=== PATIENT | female | born 1955 | race Caucasian/White ===

== ENCOUNTER 2024-11-19 06:47 | Outpatient (CLI) | payer MEDICARE, SELFPAY ==
--- NOTE | ~2024-11-19 | US_ITS ---
Limited Abdominal Sonogram: Real-time sonographic imaging of the right upper quadrant was performed. Clinical History: Atypical chest pain Findings: The liver appears echogenic, with no evidence of mass lesion or bile duct dilatation. Main portal vein demonstrates normal direction of flow. The gallbladder is well distended, and appears no rmal with no evidence of gallstone or wall thickening. The common bile duct measures 4 mm. The visua lized pancreas, aorta, and IVC are unremarkable. Impression: Diffuse fatty infiltration of the liver. Reviewed, dictated and finalized at location M. O STATION ENGINEER Impression: Diffuse fatty infiltration of the liver.
--- OUTSIDE RECORDS SUMMARY | 2024-11-19 06:55 | XMS_ITS | Data Portability ---
Author Organization [place] [facility], Main Office Address [address] [place] [address] Assessment No assessment recorded. Plan of Treatment Reminders Order Date Submit Date Provider Last Modified By Organization Details Last Modified Time Details Appointments None recorded. Lab lipid panel, serum 025 025 [facility], [address] [place], [address], 5 04:05:22 CMP, serum or plasma 025 025 [facility], [address] [place], [address], 5 04:05:22 TSH, serum or plasma 025 025 [facility], [address] [place], [address], 5 04:05:22 HbA1c (hemoglob in A1c), blood 025 025 [facility], [address] [place], [address], 5 04:05:23 microalbu min, urine 025 025 [facility], [address] [place], [address], 5 04:05:23 vitamin B12, serum 025 025 [facility], [address] [place], [address], 5 04:05:23 magnesium , serum or plasma 025 025 [facility], [address] [place] [address], [address], 5 04:05:23 CBC w/ auto diff 025 025 [facility], [address] [place] [address], [address], 5 04:05:22 vitamin D, 25-hydrox y, total, serum [id number] [facility], [address] [place] [address], [address], 4 17:18:33 HbA1c (hemoglob in A1c), blood [id number] [facility], [address] [place] [address], [address], 4 17:18:33 microalbu min, urine 024 [facility], [address] [place] [address], [address], 4 14:44:47 CBC w/ auto diff 024 024 [facility], [address] [place] [address], [address], 4 12:45:36 CMP, serum or plasma 024 024 [facility], [address] [place] [address], [address], 4 13:18:13 lipid panel, serum 024 024 [facility], [address] [place] [address], [address], 4 13:18:18 TSH, serum or plasma [facility], [address] [place], [address], 4 13:48:51 T4, free, serum [facility], [address] [place], [address], 4 14:28:35 HbA1c (hemoglob in A1c), blood [address] [facility], [address] [place] [address], [address], 4 12:57:57 microalbu min/creat inine, mass ratio, urine [id number] [facility], [address] [place] [address], [address], 4 12:57:57 CBC w/ auto diff 024 [facility], [address] [place] [address], [address], 4 14:22:58 CMP, serum or plasma 024 [facility], [address] [place] [address], [address], 4 14:45:59 lipid panel, serum 024 [facility], [address] [place] [address], [address], 4 14:46:03 TSH, serum or plasma 024 [facility], [address] [place] [address], [address], 4 14:50:21 T4, free, serum 024 024 [facility], [address] [place], [address], 4 14:39:26 HbA1c (hemoglob in A1c), blood [id number] [facility], [address] [place], [address], 3 12:10:32 microalbu min/creat inine, mass ratio, urine [id number] [facility], [address] [place], [address], 3 12:10:33 lipid panel, serum 023 023 [facility], [address] [place], [address], 3 13:39:08 CMP, serum or plasma 023 023 [facility], [address] [place], [address], 3 13:39:11 TSH, serum or plasma 023 023 [facility], [address] [place], [address], 3 14:06:22 T4, free, serum 023 023 [facility], [address] [place], [address], 3 13:52:13 microalbu min/creat inine, mass ratio, urine [id number] [facility] [address] [facility], [address] [place] [address], [address], 3 15:31:54 HbA1c (hemoglob in A1c), blood 023 023 [email or web address] [facility], [address] [place], [address], 3 15:31:54 Referral None recorded. Procedures None recorded. Surgeries None recorded. Imaging None recorded. Medication Orders None recorded. Patient TargetsNo targets recorded. Patient Instructions Encounter Date Encounter Id Patient Instructions Last Modified By Organization Details Last Modified Time 04/18/2023 [id number] Follow-up hypertension -hyperlipidemia - type 2 diabetes -obesity class two. Clinically stable. Overall is doing reasonably well. Last hemoglobin A1c was still quite elevated at 8.4. Will check blood work in the form of CBC, CMP, lipid, Thyroid, hemoglobin A1c and microalbumin. Continue on current Rx follow-up in four months [email or web address] Not available 04/18/2023 11:34:26 07/18/2023 [id number] Essential hypertension-hyperl ipidemia- type 2 diabetes- obesity class 2 . Will check a hemoglobin A1c and microalbumin. Menu on current Rx. Follow-up in four months. Portions of the record may have been created with voice recognition software. Occasional wrong-word or dckhw-x-jxgi substitutions may have occurred due to the inherent limitations of voice recognition software. Read the chart carefully and recognize, using context, where substitutions have occurred. Next Appt: 4 Months Approximate Date: 11/15/2023 [email or web address] Not available 07/18/2023 11:40:40 11/14/2023 [id number] Essential hypertension -hyperlipidemia - type 2 diabetes -obesity class two all clinically stable. Overall doing well otherwise. Will check blood work consisting of CBC, CMP, lipid, thyroid, hemoglobin A1c and microalbumin. Continue on current Rx and follow-up in four months Portions of the record may have been created with voice recognition software. Occasional wrong-word or rjaee-e-kqdh substitutions may have occurred due to the inherent limitations of voice recognition software. Read the chart carefully and recognize, using context, where substitutions have occurred. [email or web address] Not available 11/14/2023 12:11:58 05/13/2024 [id number] dementia rating scale-2* [email or web address] Not available 05/13/2024 15:40:26 alcohol misuse* Not available 05/13/2024 15:40:26 depression screening* [email or web address] Not available 05/13/2024 15:40:26 multi-dimensiona l health assessment questionnaire* [email or web address] Not available 05/13/2024 15:40:26 Personalized Hea lt Plan and Screening Recommendations Advance Directives - Do you have one? No Advance Directives - Do we have your advance directive on file in your health record? Primary Prevention/Interven tion (prevents or decreases the chance of common diseases from occurring) Smoking Risk: Non Smoker Alcohol Misuse Screening: Negative Weight: Appropriate Overwei ght continue your current weight loss efforts try to lose 5% of your body weight try to lose 10% of your body weight Physical activity: Need more exercise/physical activity Nutrition: Good Average Fall Risk (screened today): Low Intermediate Refer to attached handout Preventing Falls: After your Visit Recommend regular use of cane or walker Vaccines Pneumococcal: Influenza: Your next one in the fall of this year Chronic Disease Risks Stroke: Low Risk Intermediate Risk I have no recommendations Act nasim diagnosis, Continue current treatment plan Heart Attack: Low risk Intermediate Risk I have no recommendations Act nasim diagnosis, Continue current treatment plan Clogging of the Arteries: Low risk Intermediate Risk I have no recommendations Act nasim diagnosis, Continue current treatment plan Diabetes: Low Risk Intermediate Risk Active diagnosis, Continue current treatment plan Secondary Prevention/Interven tion (detects treatable diseases before they may cause symptoms, disability, or ) Breast Cancer Screening with mammogram: Your next mammogram: Ordered Recommended today Cervical/Uterine/Ov samir Cancer Screening: No screening necessary Osteoporosis Screening: Your next DEXA in: Ordered Recomme nded today Date Screening Last Performed: Colon Cancer Screening: Colonoscopy In: Ordered Recomme nded Date Screening Last Performed: ____ Eye Disease Screening: Dementia Risk: Low I have no recommendations Depression Screening: Negative [email or web address] Not available 05/13/2024 15:28:17 Medicare wellnes s evaluation risk assessment stable. Follow-up for hypertension, hyperlipidemia, type 2 diabetes and obesity class two. Clinically doing well. Blood sugars have been well over 200 and even 300 at times. Will check blood work but may need to consider adding some semaglutide or mounjaro. Will check a CBC, CMP, lipid, thyroid, hemoglobin A1c, microalbumin and vitamin-D level. Continue on current Rx follow-up in six months Additional Orders and/or Directives: 1. Bone density scan 2. Cologuard Next Appointment: 6 Months Approximate Date: 11/09/2024 Portions of the record may have been created with voice recognition software. Occasional wrong-word or itkuj-y-kuep substitutions may have occurred due to the inherent limitations of voice recognition software. Read the chart carefully and recognize, using context, where substitutions have occurred. [email or web address] Not available 05/13/2024 15:39:36 11/11/2024 [id number] Atypical chest pain, hypertension, hyperlipidemia, type 2 diabetes, GERD and obesity class two. Continue on current Rx check blood work consisting of CBC, CMP, lipid, thyroid, hemoglobin A1c, microalbumin. Will set up with Cardiology also set up for ultrasound of the gallbladder for further evaluation of the biliary tree. Pending those results may need further evaluation Additional Orders - Directives - Recommendations 1. Ultrasound of the gallbladder 2. Cardiology consult for atypical chest pain with multiple risk factor Follow Up: 4 Months Approximate Date: 03/11/2025 Portions of record are template driven. When necessary additional context will be provided. Additionally some portions have been created with voice recognition software. Occasional wrong-word or avsbi-i-fesf substitutions may have occurred due to the inherent limitations of voice recognition software. Read the chart carefully and recognize, using context, where substitutions may have occurred. Created: Rodolfo Chapman M.D. 11.11.2024 02:45 PM [email or web address] Not available 11/11/2024 15:46:10 Reason for Referral None Reported. Results Created Date Observation Date Name Description Value Unit Range Abnormal Flag Note LastModifiedBy Organization Detail LastModifiedTime 04/18/2004/18/2023 MICRO ALBUM N RNDM W/CRE AT RATIO ur creat 209.82 mg/dL REFER ENCE RANGE NOT ESTAB LISHE D FOR RANDO M URINE CREAT ININE Not Available [facility] (Lab) [address] [place], [address], 04/18/2023 13:11:52 04/18/2004/1804/18/2023 MICRO ALBUM N RNDM W/CRE AT RATIO microalbumin , urine 42.5 mg/L 0.0-16 .6 high Not Available [facility] (Lab) [address] [place], [address], 04/18/2023 13:11:52 04/18/20 23 04/18/2023 MICRO ALBUM N RNDM W/CRE AT RATIO microalbumin /creatinine ratio 20 mcg/m g 0-29 THE AMERI CAN DIABE TJ ASSOC IATIO N DEFIN ES ABNOR MALIT IES IN ALBUM IN EXCRE TION FOLLO WS: CATEG ORY RESUL T (MCG/ MG CREAT ININE ) EDGARD L <30 MICRO ALBUM INURI A 30-29 9 CLINI JESSIE ALBUM INURI A > OR = 300 THE ADA RECOM MENDS THAT 2 OF 2 SPECI MENS COLLE CTED WITHI N A 3- TO 6-MON TH PERIO D BE ABNOR MAL BEFOR E CONSI DILMA G A PATIE NT TO HAVE CROSS ED ONE OF THESE DIAGN OSTIC THRES HOLDS . REFER ENCE: DIABE TJ CARE, VOL. 26: S94-S 96, 2002 Not Available [facility] (Lab) [address] [place], [address], 04/18/2023 13:11:52 04/18/20 23 04/18/2023 LIPID PANEL cholesterol 152 mg/dL 140-19 9 NIH LOLITA NSUS RECOM MENDA TION FOR JUDY STERO L: ADULT CHILD LOW RISK: <200 <170 BORDE RLINE : <200- 239 ----- HIGH RISK: >240 >200 Not Available [facility] (Lab) [address] [place], [address], 04/18/2023 13:39:08 04/18/2004/18/2023 LIPID PANEL triglyceride s 208 mg/dL 0-150 high NIH LOLITA NSUS REPOR T RECOM MENDA TION FOR TRIGL YCERI LEIA: ADULT CHILD LOW RISK: <150 ----- BODER LINE: 150-1 99 ----- HIGH RISK: >200 ----- Not Available [facility] (Lab) [address] [place], [address], 04/18/2023 13:39:08 04/18/2004/18/2023 LIPID PANEL HDL cholesterol 62 mg/dL 40- Not Available [facility] (Lab) [address] [place], [address], 04/18/2023 13:39:08 04/18/2004/18/2023 LIPID PANEL LDL cholesterol, calculated 48 mg/dL 0-130 NIH LOLITA NSUS REPOR T RECOM MENDA TIONS FOR LDL: ADULT CHILD LOW RISK <130 <110 (OPTI MAL LDL) <100 ----- RUTHDE RLINE : 130-1 59 ----- HIGH RISK: >160 >130 A TRIGL YCERI DE RESUL T >400 INVAL IDATE S THE CALCU LATIO N FOR LDL FRACT IONAT ION - THE LDL RESUL T WILL NOT BE REPOR THOMAS. Not Available [facility] (Lab) [address] [place], [address], 04/18/2023 13:39:08 04/18/2004/18/2023 COMPR EHENS NASIM METAB OLIC PANEL sodium 136 mmol/ L 137-14 5 low Not Available [facility] (Lab) [address] [place], [address], 04/18/2023 13:39:11 04/18/2004/18/2023 COMPR EHENS NASIM METAB OLIC PANEL potassium 4.9 mmol/ L 3.5-5. 1 Not Available [facility] (Lab) [address] [place], [address], 04/18/2023 13:39:11 04/18/20 23 04/18/2023 COMPR EHENS NASIM METAB OLIC PANEL chloride 101 mmol/ L 98-107 Not Available [facility] (Lab) [address] [place], [address], 04/18/2023 13:39:11 04/18/20 23 04/18/2023 COMPR EHENS NASIM METAB OLIC PANEL carbon dioxide 26 mmol/ L 22-30 Not Available [facility] (Lab) [address] [place], [address], 04/18/2023 13:39:11 04/18/20 23 04/18/2023 COMPR EHENS NASIM METAB OLIC PANEL anion gap 13.9 mmol/ L 14-22 low Not Available [facility] (Lab) [address] [place], [address], 04/18/2023 13:39:11 04/18/20 23 04/18/2023 COMPR EHENS NASIM METAB OLIC PANEL glucose 335 mg/dL 70-99 high Not Available [facility] (Lab) [address] [place], [address], 04/18/2023 13:39:11 04/18/20 23 04/18/2023 COMPR EHENS NASIM METAB OLIC PANEL BUN 14 mg/dL 8-19 Not Available [facility] (Lab) [address] [place], [address], 04/18/2023 13:39:11 04/18/20 23 04/18/2023 COMPR EHENS NASIM METAB OLIC PANEL creatinine 0.62 mg/dL 0.66-1 .25 low Not Available [facility] (Lab) [address] [place], [address], 04/18/2023 13:39:11 04/18/20 23 04/18/2023 COMPR EHENS NASIM METAB OLIC PANEL GFR >60 Refer ence Range : Eros ge GFR Healt hy Adult : >60 mL/mi n/1.7 3 m2 Chron ic Kidne y Disea se: 15-60 mL/mi n/1.7 3 m2 Kidne y Failu re: <15/m L/min /1.73 m2 www.n iddk. nih.g ov The MDRD study equat ion has not been valid ated in child jen <18 years of age; pregn ant women ; the elder ly >85 years of age; or in some racia l or ethni c subgr oups, such as Hispa nics. Outsi de the valid ated juan diego eters , estim ated GFR is less accur ate, requi ring clini jessie judgm ent on a case- by-ca se basis . Clini jessie inter preta tion for other races and ages must be made by the clini evelyn. The MDRD study equat ion has not been valid ated for the evalu ation of serum creat inine relat ed to nutri mike l statu s or medic ation usage . For perso ns <18 years of age, a pedia tric GFR calcu lator is avail able on the [facility] websi te: https ://odette blas.sima palacios.o rg/pr ofess ional s/kdo qi/gf r_cal culat or Not Available [facility] (Lab) [address] [place], [address], 04/18/2023 13:39:11 04/18/20 23 04/18/2023 COMPR EHENS NASIM METAB OLIC PANEL alkaline phosphatase 127 U/L 38-126 high Not Available [facility] (Lab) [address] [place], [address], 04/18/2023 13:39:11 04/18/2004/18/2023 COMPR EHENS NASIM METAB OLIC PANEL alanine aminotransfe rase 24 U/L 0-35 Not Available [facility] (Lab) [address] [place], [address], 04/18/2023 13:39:11 04/18/20 23 04/18/2023 COMPR EHENS NASIM METAB OLIC PANEL aspartate aminotransfe rase 24 U/L 15-37 Not Available [facility] (Lab) [address] [place], [address], 04/18/2023 13:39:11 04/18/2004/18/2023 COMPR EHENS NASIM METAB OLIC PANEL bilirubin, total 0.80 mg/dL 0.20-1 .30 Not Available [facility] (Lab) [address] [place], [address], 04/18/2023 13:39:11 04/18/20 23 04/18/2023 COMPR EHENS NASIM METAB OLIC PANEL calcium 9.4 mg/dL 8.4-10 .2 Not Available [facility] (Lab) [address] [place], [address], 04/18/2023 13:39:11 04/18/2004/18/2023 COMPR EHENS NASIM METAB OLIC PANEL total protein 8.0 g/dL 6.3-8. 2 Not Available [facility] (Lab) [address] [place], [address], 04/18/2023 13:39:11 04/18/2004/18/2023 COMPR EHENS NASIM METAB OLIC PANEL albumin 4.6 g/dL 3.0-4. 4 high Not Available [facility] (Lab) [address] [place], [address], 04/18/2023 13:39:11 04/18/2004/18/2023 COMPR EHENS NASIM METAB OLIC PANEL globulin 3.4 g/dL 2.6-4. 2 Not Available [facility] (Lab) [address] [place], [address], 04/18/2023 13:39:11 04/18/2004/18/2023 COMPR EHENS NASIM METAB OLIC PANEL A/G ratio 1.4 ratio 1.0-2. 0 Not Available [facility] (Lab) [address] [place], [address], 04/18/2023 13:39:11 04/18/2004/18/2023 T4 FREE free T4 1.20 NG/dL 0.78-2 .19 Not Available [facility] (Lab) [address] [place], [address], 04/18/2023 13:52:13 04/18/20 23 04/18/2023 TSH thyroid-stim ulating hormone 2.090 uIU/m L 0.465- 4.680 Not Available [facility] (Lab) [address] [place], [address], 04/18/2023 14:06:22 04/18/20 23 04/18/2023 HEMOG LOBIN A1C HA1C 8.7 % 4.0-6. 0 high Diabe tj Scree nathalia Crite ez: <5.7% Consi stent with absen ce of diabe tj 5.7-6 .4% Consi stent with incre ased risk for diabe tj (pred iabet es) >OR=6 .5% Consi stent with diabe tj REFER ENCE: Diabe tj Care 2016, 39(Hutson ppl.1 ):s13 -s22 Not Available [facility] (Lab) [address] [place], [address], 04/18/2023 21:57:52 06/26/20 23 06/27/2023 FRUCT OSAMI NE fructosamine 320 umol/ L 0-285 high Publi shed refer ence inter tessy for appar ently healt hy subje cts betwe en age 20 and 60 is 205 - 285 umol/ L and in a poorl y contr olled diabe tic popul ation is 228 - 563 umol/ L with a mean of 396 umol/ L. Perfo rmed at: [facility] [address], [place] [address] Lab Direc tor: Reynaldo gutierrez PhD, Phone : [phone] Not Available [facility] (Lab) [address] [place], [address], 06/27/2023 11:13:55 07/18/2007/18/2023 MICRO ALBUM N RNDM W/CRE AT RATIO ur creat 34.19 mg/dL REFER ENCE RANGE NOT ESTAB LISHE D FOR RANDO M URINE CREAT ININE Not Available [facility] (Lab) [address] [place], [address], 07/18/2023 14:37:43 07/18/20 23 07/18/2023 MICRO ALBUM N RNDM W/CRE AT RATIO microalbumin , urine <6.0 mg/L 0.0-16 .6 Not Available [facility] (Lab) [address] [place], [address], 07/18/2023 14:37:43 07/18/2007/18/2023 HEMOG LOBIN A1C HA1C 8.3 % 4.0-6. 0 high Diabe tj Scree nathalia Crite ez: <5.7% Consi stent with absen ce of diabe tj 5.7-6 .4% Consi stent with incre ased risk for diabe tj (pred iabet es) >OR=6 .5% Consi stent with diabe tj REFER ENCE: Diabe tj Care 2016, 39(Hutson ppl.1 ):s13 -s22 Not Available [facility] (Lab) [address] [place], [address], 07/18/2023 23:47:01 11/14/19 24 11/14/2023 MICRO ALBUM N RNDM W/CRE AT RATIO ur creat 162.10 mg/dL REFER ENCE RANGE NOT ESTAB LISHE D FOR RANDO M URINE CREAT ININE Not Available [facility] (Lab) [address] [place], [address], 11/14/2023 15:29:50 11/14/19 24 11/14/2023 MICRO ALBUM N RNDM W/CRE AT RATIO microalbumin , urine 32.0 mg/L 0.0-16 .6 high Not Available [facility] (Lab) [address] [place], [address], 11/14/2023 15:29:50 11/14/19 24 11/14/2023 MICRO ALBUM N RNDM W/CRE AT RATIO microalbumin /creatinine ratio 20 mcg/m g 0-29 THE AMERI CAN DIABE TJ ASSOC IATIO N DEFIN ES ABNOR MALIT IES IN ALBUM IN EXCRE TION FOLLO WS: CATEG ORY RESUL T (MCG/ MG CREAT ININE ) EDGARD L <30 MICRO ALBUM INURI A 30-29 9 CLINI JESSIE ALBUM INURI A > OR = 300 THE ADA RECOM MENDS THAT 2 OF 2 SPECI MENS COLLE CTED WITHI N A 3- TO 6-MON TH PERIO D BE ABNOR MAL BEFOR E CONSI DILMA G A PATIE NT TO HAVE CROSS ED ONE OF THESE DIAGN OSTIC THRES HOLDS . REFER ENCE: DIABE TJ CARE, VOL. 26: S94-S 96, 2002 Not Available [facility] (Lab) [address] [place], [address], 11/14/2023 15:29:50 11/14/19 24 11/14/2023 CBC/C OMPLE TE BLD COUNT W/DIF F white blood cells 7.8 x10'3 /uL 4.2-10 .8 Not Available [facility] (Lab) [address] [place], [address], 11/14/2023 14:22:57 11/14/19 24 11/14/2023 CBC/C OMPLE TE BLD COUNT W/DIF F red blood cells 4.93 x10'6 /uL 3.80-5 .20 Not Available [facility] (Lab) [address] [place], [address], 11/14/2023 14:22:57 11/14/19 24 11/14/2023 CBC/C OMPLE TE BLD COUNT W/DIF F hemoglobin 14.3 g/dL 12.0-1 5.6 Not Available [facility] (Lab) [address] [place], [address], 11/14/2023 14:22:57 11/14/19 24 11/14/2023 CBC/C OMPLE TE BLD COUNT W/DIF F hematocrit 43.0 % 35.7-4 5.7 Not Available [facility] (Lab) [address] [place], [address], 11/14/2023 14:22:57 11/14/19 24 11/14/2023 CBC/C OMPLE TE BLD COUNT W/DIF F mean red cell volume 87.2 fL 82.0-9 9.0 Not Available [facility] (Lab) [address] [place], [address], 11/14/2023 14:22:57 11/14/19 24 11/14/2023 CBC/C OMPLE TE BLD COUNT W/DIF F mean red cell hemoglobin 29.0 pg 27.0-3 3.0 Not Available [facility] (Lab) [address] [place], [address], 11/14/2023 14:22:57 11/14/19 24 11/14/2023 CBC/C OMPLE TE BLD COUNT W/DIF F mean RBC HGB concentratio n 33.3 g/dL 31.0-3 6.0 Not Available [facility] (Lab) [address] [place], [address], 11/14/2023 14:22:57 11/14/19 24 11/14/2023 CBC/C OMPLE TE BLD COUNT W/DIF F red cell distribution width 12.7 % 11.8-1 5.5 Not Available [facility] (Lab) [address] [place], [address], 11/14/2023 14:22:57 11/14/19 24 11/14/2023 CBC/C OMPLE TE BLD COUNT W/DIF F platelets 320 x10'3 /uL 150-40 0 Not Available [facility] (Lab) [address] [place], [address], 11/14/2023 14:22:57 11/14/19 24 11/14/2023 CBC/C OMPLE TE BLD COUNT W/DIF F mean platelet volume 10.9 fL 9.0-12 .4 Not Available [facility] (Lab) [address] [place], [address], 11/14/2023 14:22:57 11/14/19 24 11/14/2023 CBC/C OMPLE TE BLD COUNT W/DIF F neutrophils 47.7 % 39.0-7 2.0 Not Available [facility] (Lab) [address] [place], [address], 11/14/2023 14:22:57 11/14/19 24 11/14/2023 CBC/C OMPLE TE BLD COUNT W/DIF F lymphocytes 40.1 % 16.0-4 7.0 Not Available [facility] (Lab) [address] [place], [address], 11/14/2023 14:22:57 11/14/19 24 11/14/2023 CBC/C OMPLE TE BLD COUNT W/DIF F monocytes 5.1 % 5.0-12 .0 Not Available [facility] (Lab) [address] [place], [address], 11/14/2023 14:22:57 11/14/19 24 11/14/2023 CBC/C OMPLE TE BLD COUNT W/DIF F eosinophils 5.6 % 1.0-7. 0 Not Available [facility] (Lab) [address] [place], [address], 11/14/2023 14:22:57 11/14/19 24 11/14/2023 CBC/C OMPLE TE BLD COUNT W/DIF F basophils 1.0 % 0.0-2. 0 Not Available [facility] (Lab) [address] [place], [address], 11/14/2023 14:22:57 11/14/19 24 11/14/2023 CBC/C OMPLE TE BLD COUNT W/DIF F immature granulocytes 0.5 % 0.00-0 .50 Not Available [facility] (Lab) [address] [place], [address], 11/14/2023 14:22:57 11/14/19 24 11/14/2023 CBC/C OMPLE TE BLD COUNT W/DIF F neutrophils, absolute count 3.71 x10'3 /uL 1.5-8. 0 Not Available [facility] (Lab) [address] [place], [address], 11/14/2023 14:22:57 11/14/19 24 11/14/2023 CBC/C OMPLE TE BLD COUNT W/DIF F lymphocytes, absolute count 3.13 x10'3 /uL 1.07-3 .43 Not Available [facility] (Lab) [address] [place], [address], 11/14/2023 14:22:57 11/14/19 24 11/14/2023 CBC/C OMPLE TE BLD COUNT W/DIF F monocytes, absolute count 0.40 x10'3 /uL 0.29-0 .99 Not Available [facility] (Lab) [address] [place], [address], 11/14/2023 14:22:57 11/14/19 24 11/14/2023 CBC/C OMPLE TE BLD COUNT W/DIF F eosinophils, absolute count 0.44 x10'3 /uL 0.02-0 .53 Not Available [facility] (Lab) [address] [place], [address], 11/14/2023 14:22:57 11/14/19 24 11/14/2023 CBC/C OMPLE TE BLD COUNT W/DIF F basophils, absolute count 0.08 x10'3 /uL 0.01-0 .08 Not Available [facility] (Lab) [address] [place], [address], 11/14/2023 14:22:57 11/14/19 24 11/14/2023 CBC/C OMPLE TE BLD COUNT W/DIF F immature granulocytes ,absolute 0.04 x10'3 /uL 0.00-0 .05 Not Available [facility] (Lab) [address] [place], [address], 11/14/2023 14:22:57 11/14/19 24 11/14/2023 CBC/C OMPLE TE BLD COUNT W/DIF F nucleated red blood cells 0.0 % -0 Not Available [facility] (Lab) [address] [place], [address], 11/14/2023 14:22:57 11/14/19 24 11/14/2023 CBC/C OMPLE TE BLD COUNT W/DIF F NRBC# 0.00 x10'3 /uL Not Available [facility] (Lab) [address] [place], [address], 11/14/2023 14:22:57 11/14/19 24 11/14/2023 T4 FREE free T4 1.10 NG/dL 0.78-2 .19 Not Available [facility] (Lab) [address] [place], [address], 11/14/2023 14:39:26 11/14/19 24 11/14/2023 COMPR EHENS NAISM METAB OLIC PANEL sodium 138 mmol/ L 137-14 5 Not Available [facility] (Lab) [address] [place], [address], 11/14/2023 14:45:59 11/14/19 24 11/14/2023 COMPR EHENS NASIM METAB OLIC PANEL potassium 4.6 mmol/ L 3.5-5. 1 Not Available [facility] (Lab) [address] [place], [address], 11/14/2023 14:45:59 11/14/19 24 11/14/2023 COMPR EHENS NASIM METAB OLIC PANEL chloride 102 mmol/ L 98-107 Not Available [facility] (Lab) [address] [place], [address], 11/14/2023 14:45:59 11/14/19 24 11/14/2023 COMPR EHENS NASIM METAB OLIC PANEL carbon dioxide 32 mmol/ L 22-30 high Not Available [facility] (Lab) [address] [place], [address], 11/14/2023 14:45:59 11/14/19 24 11/14/2023 COMPR EHENS NASIM METAB OLIC PANEL anion gap 8.6 mmol/ L 14-22 low Not Available [facility] (Lab) [address] [place], [address], 11/14/2023 14:45:59 11/14/19 24 11/14/2023 COMPR EHENS NASIM METAB OLIC PANEL glucose 258 mg/dL 70-99 high Not Available [facility] (Lab) [address] [place], [address], 11/14/2023 14:45:59 11/14/19 24 11/14/2023 COMPR EHENS NASIM METAB OLIC PANEL BUN 17 mg/dL 8-19 Not Available [facility] (Lab) [address] [place], [address], 11/14/2023 14:45:59 11/14/19 24 11/14/2023 COMPR EHENS NASIM METAB OLIC PANEL creatinine 0.77 mg/dL 0.66-1 .25 Not Available [facility] (Lab) [address] [place], [address], 11/14/2023 14:45:59 11/14/19 24 11/14/2023 COMPR EHENS NASIM METAB OLIC PANEL GFR >60 Refer ence Range : Eros ge GFR Healt hy Adult : >60 mL/mi n/1.7 3 m2 Chron ic Kidne y Disea se: 15-60 mL/mi n/1.7 3 m2 Kidne y Failu re: <15/m L/min /1.73 m2 www.n iddk. nih.g ov The MDRD study equat ion has not been valid ated in child jen <18 years of age; pregn ant women ; the elder ly >85 years of age; or in some racia l or ethni c subgr oups, such as Hispa nics. Outsi de the valid ated juan diego eters , estim ated GFR is less accur ate, requi ring clini jessie judgm ent on a case- by-ca se basis . Clini jessie inter preta tion for other races and ages must be made by the clini evelyn. The MDRD study equat ion has not been valid ated for the evalu ation of serum creat inine relat ed to nutri mike l statu s or medic ation usage . For perso ns <18 years of age, a pedia tric GFR calcu lator is avail able on the [facility] websi te: https ://odette w.sima palacios.o patricio/pr ofess ional s/kdo qi/gf r_cal culat or Not Available [facility] (Lab) [address] [place], [address], 11/14/2023 14:45:59 11/14/19 24 11/14/2023 COMPR EHENS NASIM METAB OLIC PANEL alkaline phosphatase 112 U/L 38-126 Not Available [facility] (Lab) [address] [place], [address], 11/14/2023 14:45:59 11/14/19 24 11/14/2023 COMPR EHENS NASIM METAB OLIC PANEL alanine aminotransfe rase 28 U/L 0-35 Not Available [facility] (Lab) [address] [place], [address], 11/14/2023 14:45:59 11/14/19 24 11/14/2023 COMPR EHENS NASIM METAB OLIC PANEL aspartate aminotransfe rase 25 U/L 15-37 Not Available [facility] (Lab) [address] [place], [address], 11/14/2023 14:45:59 11/14/19 24 11/14/2023 COMPR EHENS NASIM METAB OLIC PANEL bilirubin, total 0.70 mg/dL 0.20-1 .30 Not Available [facility] (Lab) [address] [place], [address], 11/14/2023 14:45:59 11/14/19 24 11/14/2023 COMPR EHENS NASIM METAB OLIC PANEL calcium 9.9 mg/dL 8.4-10 .2 Not Available [facility] (Lab) [address] [place], [address], 11/14/2023 14:45:59 11/14/19 24 11/14/2023 COMPR EHENS NASIM METAB OLIC PANEL total protein 7.4 g/dL 6.3-8. 2 Not Available [facility] (Lab) [address] [place], [address], 11/14/2023 14:45:59 11/14/19 24 11/14/2023 COMPR EHENS NASIM METAB OLIC PANEL albumin 4.3 g/dL 3.0-4. 4 Not Available [facility] (Lab) [address] [place], [address], 11/14/2023 14:45:59 11/14/19 24 11/14/2023 COMPR EHENS NASIM METAB OLIC PANEL globulin 3.1 g/dL 2.6-4. 2 Not Available [facility] (Lab) [address] [place], [address], 11/14/2023 14:45:59 11/14/19 24 11/14/2023 COMPR EHENS NASIM METAB OLIC PANEL A/G ratio 1.4 ratio 1.0-2. 0 Not Available [facility] (Lab) [address] [place], [address], 11/14/2023 14:45:59 11/14/19 24 11/14/2023 LIPID PANEL cholesterol 138 mg/dL 140-19 9 low NIH LOLITA NSUS RECOM MENDA TION FOR JUDY STERO L: ADULT CHILD LOW RISK: <200 <170 BORDE RLINE : <200- 239 ----- HIGH RISK: >240 >200 Not Available [facility] (Lab) [address] [place], [address], 11/14/2023 14:46:03 11/14/19 24 11/14/2023 LIPID PANEL triglyceride s 178 mg/dL 0-150 high NIH LOLITA NSUS REPOR T RECOM MENDA TION FOR TRIGL YCERI LEIA: ADULT CHILD LOW RISK: <150 ----- BODER LINE: 150-1 99 ----- HIGH RISK: >200 ----- Not Available [facility] (Lab) [address] [place], [address], 11/14/2023 14:46:03 11/14/19 24 11/14/2023 LIPID PANEL HDL cholesterol 66 mg/dL 40- Not Available [facility] (Lab) [address] [place], [address], 11/14/2023 14:46:03 11/14/19 24 11/14/2023 LIPID PANEL LDL cholesterol, calculated 36 mg/dL 0-130 NIH LOLITA NSUS REPOR T RECOM MENDA TIONS FOR LDL: ADULT CHILD LOW RISK <130 <110 (OPTI MAL LDL) <100 ----- BORDE RLINE : 130-1 59 ----- HIGH RISK: >160 >130 A TRIGL YCERI DE RESUL T >400 INVAL IDATE S THE CALCU LATIO N FOR LDL FRACT IONAT ION - THE LDL RESUL T WILL NOT BE REPOR THOMAS. Not Available [facility] (Lab) [address] [place], [address], 11/14/2023 14:46:03 11/14/19 24 11/14/2023 TSH thyroid-stim ulating hormone 2.110 uIU/m L 0.465- 4.680 Not Available [facility] (Lab) [address] [place], [address], 11/14/2023 14:50:21 11/14/19 24 11/14/2023 HEMOG LOBIN A1C HA1C 8.5 % 4.0-6. 0 high Diabe tj Scree nathalia Crite ez: <5.7% Consi stent with absen ce of diabe tj 5.7-6 .4% Consi stent with incre ased risk for diabe tj (pred iabet es) >OR=6 .5% Consi stent with diabe tj REFER ENCE: Diabe tj Care 2016, 39(Hutson ppl.1 ):s13 -s22 Not Available [facility] (Lab) [address] [place], [address], 11/14/2023 15:15:34 05/15/20 24 05/15/2024 CBC/C OMPLE TE BLD COUNT W/DIF F white blood cells 8.4 x10'3 /uL 4.2-10 .8 Not Available [facility] (Lab) [address] [place], [address], 05/15/2024 12:45:36 05/15/20 24 05/15/2024 CBC/C OMPLE TE BLD COUNT W/DIF F red blood cells 4.56 x10'6 /uL 3.80-5 .20 Not Available [facility] (Lab) [address] [place], [address], 05/15/2024 12:45:36 05/15/20 24 05/15/2024 CBC/C OMPLE TE BLD COUNT W/DIF F hemoglobin 13.6 g/dL 12.0-1 5.6 Not Available [facility] (Lab) [address] [place], [address], 05/15/2024 12:45:36 05/15/20 24 05/15/2024 CBC/C OMPLE TE BLD COUNT W/DIF F hematocrit 40.3 % 35.7-4 5.7 Not Available [facility] (Lab) [address] [place], [address], 05/15/2024 12:45:36 05/15/20 24 05/15/2024 CBC/C OMPLE TE BLD COUNT W/DIF F mean red cell volume 88.4 fL 82.0-9 9.0 Not Available [facility] (Lab) [address] [place], [address], 05/15/2024 12:45:36 05/15/20 24 05/15/2024 CBC/C OMPLE TE BLD COUNT W/DIF F mean red cell hemoglobin 29.8 pg 27.0-3 3.0 Not Available [facility] (Lab) [address] [place], [address], 05/15/2024 12:45:36 05/15/20 24 05/15/2024 CBC/C OMPLE TE BLD COUNT W/DIF F mean RBC HGB concentratio n 33.7 g/dL 31.0-3 6.0 Not Available [facility] (Lab) [address] [place], [address], 05/15/2024 12:45:36 05/15/20 24 05/15/2024 CBC/C OMPLE TE BLD COUNT W/DIF F red cell distribution width 12.7 % 11.8-1 5.5 Not Available [facility] (Lab) [address] [place], [address], 05/15/2024 12:45:36 05/15/20 24 05/15/2024 CBC/C OMPLE TE BLD COUNT W/DIF F platelets 312 x10'3 /uL 150-40 0 Not Available [facility] (Lab) [address] [place], [address], 05/15/2024 12:45:36 05/15/20 24 05/15/2024 CBC/C OMPLE TE BLD COUNT W/DIF F mean platelet volume 10.8 fL 9.0-12 .4 Not Available [facility] (Lab) [address] [place], [address], 05/15/2024 12:45:36 05/15/20 24 05/15/2024 CBC/C OMPLE TE BLD COUNT W/DIF F neutrophils 59.6 % 39.0-7 2.0 Not Available [facility] (Lab) [address] [place], [address], 05/15/2024 12:45:36 05/15/20 24 05/15/2024 CBC/C OMPLE TE BLD COUNT W/DIF F lymphocytes 24.9 % 16.0-4 7.0 Not Available [facility] (Lab) [address] [place], [address], 05/15/2024 12:45:36 05/15/20 24 05/15/2024 CBC/C OMPLE TE BLD COUNT W/DIF F monocytes 5.6 % 5.0-12 .0 Not Available [facility] (Lab) [address] [place], [address], 05/15/2024 12:45:36 05/15/20 24 05/15/2024 CBC/C OMPLE TE BLD COUNT W/DIF F eosinophils 8.8 % 1.0-7. 0 high Not Available [facility] (Lab) [address] [place], [address], 05/15/2024 12:45:36 05/15/20 24 05/15/2024 CBC/C OMPLE TE BLD COUNT W/DIF F basophils 0.7 % 0.0-2. 0 Not Available [facility] (Lab) [address] [place], [address], 05/15/2024 12:45:36 05/15/20 24 05/15/2024 CBC/C OMPLE TE BLD COUNT W/DIF F immature granulocytes 0.4 % 0.00-0 .50 Not Available [facility] (Lab) [address] [place], [address], 05/15/2024 12:45:36 05/15/20 24 05/15/2024 CBC/C OMPLE TE BLD COUNT W/DIF F neutrophils, absolute count 4.99 x10'3 /uL 1.5-8. 0 Not Available [facility] (Lab) [address] [place], [address], 05/15/2024 12:45:36 05/15/20 24 05/15/2024 CBC/C OMPLE TE BLD COUNT W/DIF F lymphocytes, absolute count 2.09 x10'3 /uL 1.07-3 .43 Not Available [facility] (Lab) [address] [place], [address], 05/15/2024 12:45:36 05/15/20 24 05/15/2024 CBC/C OMPLE TE BLD COUNT W/DIF F monocytes, absolute count 0.47 x10'3 /uL 0.29-0 .99 Not Available [facility] (Lab) [address] [place], [address], 05/15/2024 12:45:36 05/15/20 24 05/15/2024 CBC/C OMPLE TE BLD COUNT W/DIF F eosinophils, absolute count 0.74 x10'3 /uL 0.02-0 .53 high Not Available [facility] (Lab) [address] [place], [address], 05/15/2024 12:45:36 05/15/20 24 05/15/2024 CBC/C OMPLE TE BLD COUNT W/DIF F basophils, absolute count 0.06 x10'3 /uL 0.01-0 .08 Not Available [facility] (Lab) [address] [place], [address], 05/15/2024 12:45:36 05/15/20 24 05/15/2024 CBC/C OMPLE TE BLD COUNT W/DIF F immature granulocytes ,absolute 0.03 x10'3 /uL 0.00-0 .05 Not Available [facility] (Lab) [address] [place], [address], 05/15/2024 12:45:36 05/15/20 24 05/15/2024 CBC/C OMPLE TE BLD COUNT W/DIF F nucleated red blood cells 0.0 % -0 Not Available [facility] (Lab) [address] [place], [address], 05/15/2024 12:45:36 05/15/20 24 05/15/2024 CBC/C OMPLE TE BLD COUNT W/DIF F NRBC# 0.00 x10'3 /uL Not Available [facility] (Lab) [address] [place], [address], 05/15/2024 12:45:36 05/15/20 24 05/15/2024 COMPR EHENS NASIM METAB OLIC PANEL sodium 138 mmol/ L 137-14 5 Not Available [facility] (Lab) [address] [place], [address], 05/15/2024 13:18:13 05/15/20 24 05/15/2024 COMPR EHENS NASIM METAB OLIC PANEL potassium 4.2 mmol/ L 3.5-5. 1 Not Available [facility] (Lab) [address] [place], [address], 05/15/2024 13:18:13 05/15/20 24 05/15/2024 COMPR EHENS NASIM METAB OLIC PANEL chloride 106 mmol/ L 98-107 Not Available [facility] (Lab) [address] [place], [address], 05/15/2024 13:18:13 05/15/20 24 05/15/2024 COMPR EHENS NASIM METAB OLIC PANEL carbon dioxide 27 mmol/ L 22-30 Not Available [facility] (Lab) [address] [place], [address], 05/15/2024 13:18:13 05/15/20 24 05/15/2024 COMPR EHENS NASIM METAB OLIC PANEL anion gap 9.2 mmol/ L 14-22 low Not Available [facility] (Lab) [address] [place], [address], 05/15/2024 13:18:13 05/15/20 24 05/15/2024 COMPR EHENS NASIM METAB OLIC PANEL glucose 122 mg/dL 70-99 high Not Available [facility] (Lab) [address] [place], [address], 05/15/2024 13:18:13 05/15/20 24 05/15/2024 COMPR EHENS NASIM METAB OLIC PANEL BUN 21 mg/dL 8-19 high Not Available [facility] (Lab) [address] [place], [address], 05/15/2024 13:18:13 05/15/20 24 05/15/2024 COMPR EHENS NASIM METAB OLIC PANEL creatinine 0.93 mg/dL 0.66-1 .25 Not Available [facility] (Lab) [address] [place], [address], 05/15/2024 13:18:13 05/15/20 24 05/15/2024 COMPR EHENS NASIM METAB OLIC PANEL GFR 60 Refer ence Range : Eros ge GFR Healt hy Adult : >60 mL/mi n/1.7 3 m2 Chron ic Kidne y Disea se: 15-60 mL/mi n/1.7 3 m2 Kidne y Failu re: <15/m L/min /1.73 m2 www.n iddk. nih.g ov The MDRD study equat ion has not been valid ated in child jen <18 years of age; pregn ant women ; the elder ly >85 years of age; or in some racia l or ethni c subgr oups, such as Hispa nics. Outsi de the valid ated juan diego eters , estim ated GFR is less accur ate, requi ring clini jessie judgm ent on a case- by-ca se basis . Clini jessie inter preta tion for other races and ages must be made by the clini evelyn. The MDRD study equat ion has not been valid ated for the evalu ation of serum creat inine relat ed to nutri mike l statu s or medic ation usage . For perso ns <18 years of age, a pedia tric GFR calcu lator is avail able on the [facility] websi te: https ://odette palacios.alyson curry/corbin hooksal s/kdo qi/gf r_cal culat or Not Available [facility] (Lab) [address] [place], [address], 05/15/2024 13:18:13 05/15/2005/15/2024 COMPR EHENS NASIM METAB OLIC PANEL alkaline phosphatase 96 U/L 38-126 Not Available [facility] (Lab) [address] [place], [address], 05/15/2024 13:18:13 05/15/2005/15/2024 COMPR EHENS NASIM METAB OLIC PANEL alanine aminotransfe rase 44 U/L 0-35 high Not Available [facility] (Lab) [address] [place], [address], 05/15/2024 13:18:13 05/15/20 24 05/15/2024 COMPR EHENS NASIM METAB OLIC PANEL aspartate aminotransfe rase 42 U/L 15-37 high Not Available [facility] (Lab) [address] [place], [address], 05/15/2024 13:18:13 05/15/20 24 05/15/2024 COMPR EHENS NASIM METAB OLIC PANEL bilirubin, total 1.00 mg/dL 0.20-1 .30 Not Available [facility] (Lab) [address] [place], [address], 05/15/2024 13:18:13 05/15/20 24 05/15/2024 COMPR EHENS NASIM METAB OLIC PANEL calcium 10.4 mg/dL 8.4-10 .2 high Not Available [facility] (Lab) [address] [place], [address], 05/15/2024 13:18:13 05/15/20 24 05/15/2024 COMPR EHENS NASIM METAB OLIC PANEL total protein 7.8 g/dL 6.3-8. 2 Not Available [facility] (Lab) [address] [place], [address], 05/15/2024 13:18:13 05/15/20 24 05/15/2024 COMPR EHENS NASIM METAB OLIC PANEL albumin 4.5 g/dL 3.0-4. 4 high Not Available [facility] (Lab) [address] [place], [address], 05/15/2024 13:18:13 05/15/20 24 05/15/2024 COMPR EHENS NASIM METAB OLIC PANEL globulin 3.3 g/dL 2.6-4. 2 Not Available [facility] (Lab) [address] [place], [address], 05/15/2024 13:18:13 05/15/20 24 05/15/2024 COMPR EHENS NASIM METAB OLIC PANEL A/G ratio 1.4 ratio 1.0-2. 0 Not Available [facility] (Lab) [address] [place], [address], 05/15/2024 13:18:13 05/15/20 24 05/15/2024 LIPID PANEL cholesterol 127 mg/dL 140-19 9 low NIH LOLITA NSUS RECOM MENDA TION FOR JUDY STERO L: ADULT CHILD LOW RISK: <200 <170 BORDE RLINE : <200- 239 ----- HIGH RISK: >240 >200 Not Available [facility] (Lab) [address] [place], [address], 05/15/2024 13:18:18 05/15/20 24 05/15/2024 LIPID PANEL triglyceride s 135 mg/dL 0-150 NIH LOLITA NSUS REPOR T RECOM MENDA TION FOR TRIGL YCERI LEIA: ADULT CHILD LOW RISK: <150 ----- BODER LINE: 150-1 99 ----- HIGH RISK: >200 ----- Not Available [facility] (Lab) [address] [place], [address], 05/15/2024 13:18:18 05/15/20 24 05/15/2024 LIPID PANEL HDL cholesterol 81 mg/dL 40- Not Available [facility] (Lab) [address] [place], [address], 05/15/2024 13:18:18 05/15/20 24 05/15/2024 LIPID PANEL LDL cholesterol, calculated 19 mg/dL 0-130 NIH LOLITA NSUS REPOR T RECOM MENDA TIONS FOR LDL: ADULT CHILD LOW RISK <130 <110 (OPTI MAL LDL) <100 ----- BORDE RLINE : 130-1 59 ----- HIGH RISK: >160 >130 A TRIGL YCERI DE RESUL T >400 INVAL IDATE S THE CALCU LATIO N FOR LDL FRACT IONAT ION - THE LDL RESUL T WILL NOT BE REPOR THOMAS. Not Available [facility] (Lab) [address] [place], [address], 05/15/2024 13:18:18 05/15/20 24 05/15/2024 TSH thyroid-stim ulating hormone 2.130 uIU/m L 0.465- 4.680 Not Available [facility] (Lab) [address] [place], [address], 05/15/2024 13:48:50 05/15/20 24 05/15/2024 VITAM IN D 25-HY DROXY [id number] 39.8 NG/mL 30-100 Vitam in D Statu s: Defic ient: <20 ng/mL Insuf ficie nt: 20-29 ng/mL Suffi cient : 30-10 0 ng/mL Not Available [facility] (Lab) [address] [place], [address], 05/15/2024 14:02:23 05/15/20 24 05/15/2024 T4 FREE free T4 1.20 NG/dL 0.78-2 .19 Not Available [facility] (Lab) [address] [place], [address], 05/15/2024 14:28:35 05/15/20 24 05/15/2024 HEMOG LOBIN A1C HA1C 8.2 % 4.0-6. 0 high Diabe tj Scree nathalia Crite ez: <5.7% Consi stent with absen ce of diabe tj 5.7-6 .4% Consi stent with incre ased risk for diabe tj (pred iabet es) >OR=6 .5% Consi stent with diabe tj REFER ENCE: Diabe tj Care 2016, 39(Hutson ppl.1 ):s13 -s22 Not Available [facility] (Lab) [address] [place], [address], 05/15/2024 14:44:20 05/15/20 24 05/15/2024 MICRO ALBUM IN RANDO M URINE microalbumin , urine 10.0 mg/L 0.0-16 .6 Not Available [facility] (Lab) [address], [place], [address], 05/15/2024 14:44:47 06/16/20 24 06/16/2024 COLOG UARD cologuard result reportable NEGATI VE negati ve normal NEGAT NASIM TEST RESUL T. A negat nasim Colog uard resul t indic ates a low likel ihood that a color ectal cance r (CRC) or advan brandie adeno ma (cassandra omato us polyp s with more advan brandie pre-m align ant featu res) is prese nt. The [facility] [place] e that a perso n with a negat nasim Colog uard test has a color ectal cance r is less than 1 in 1500 (nega tive predi ctive value >99.9 %) or has an advan brandie adeno ma is less than 5.3% (nega tive predi ctive value 94.7% ). These data are based on a prosp ectiv e cross -sect ional study of 10,00 0 indiv idual s at [place] ge risk for color ectal cance r who were scree mike with both Colog uard and colon oscop y. (Marco A Patel et al, N Engl J Med 2014; 370(1 4):12 86-12 97) The edgard l value (refe rence range ) for this assay is negat nasim. COLOG UARD RE-SC KENDALL SILVA RECOM MENDA TION: Perio dic color ectal cance r scree nathalia is an impor tant part of preve ntive healt hcare for asymp tomat ic indiv idual s at [place] ge risk for color ectal cance r. Follo wing a negat nasim Colog uard resul t, the Ameri can Cance r Socie ty and [place] Multi -Soci ety Task Force scree nathalia guide lines recom mend a Colog uard re-sc reeni ng inter tessy of 3 years . Refer ences : Ameri can Cance r Socie ty Guide line for Color ectal Cance r Scree nathalia: https ://ww w.can cer.o rg/ca ncer/ colon -rect al-ca ncer/ detec tion- diagn osis- stagi ng/ac s-rec ommen datio ns.ht ml.; Paulo DK, Arianna garcia CR, Sanya chase JK, Color ectal Cance r Scree nathalia: Recom menda tions for Physi cians and Patie nts from the [place]. Multi -Soci ety Task Force on Color ectal Cance r Scree nathalia , Yefri garciante rolog y 2017; 112:1 016-1 030. TEST DESCR IPTIO N: Kiefer site algor ithmi c danish sis of stool DNA-b sole keenan with hemog lobin immun oassa y. Quant itati ve value s of indiv idual bioma rkers are not repor table and are not assoc iated with indiv idual bioma rker resul t refer ence range s. Colog uard is inten ded for color ectal cance r scree nathalia of adult s of eithe r sex, 45 years or older , who are at [facility] for color ectal cance r (CRC) . Colog uard has been appro olaf for use by the [place] FDA. The perfo rmanc e of Colog uard was estab lishe d in a cross secti onal study of [facility] adult s aged 50-84 . Colog uard perfo rmanc e in patie nts ages 45 to 49 years was estim ated by sub-g roup danish sis of near- age group s. Colon oscop ies perfo rmed for a posit nasim resul t may find as the most clini luciana signi marcus briggs n: color ectal cance r [4.0% ], advan brandie adeno ma (incl uding sessi le gregg thomas polyp s great er than or equal to 1cm diame ter) [20%] or non- advan brandie adeno ma [31%] ; or no color ectal neopl liborio [45%] . These estim ates are deriv ed from a prosp ectiv e cross -sect ional scree nathalia study of , 0 [facility] ge risk for color ectal cance r who were scree mike with both Colog uard and colon oscop y. (Marco A Walls al, N Engl J Med 2014; 370(1 4):12 86-12 97.) Colog uard may produ ce a false negat nasim or false posit nasim resul t (no color ectal cance r or preca ncero us polyp prese nt at colon oscop y follo w up). A negat nasim Colog uard test resul t does not guara ntee the absen ce of CRC or advan brandie adeno ma (pre- cance r). The curre nt Colog uard scree nathalia inter tessy is every 3 years . ([employer] [place] Cance r Socie ty and U.[place]. Multi -Soci ety Task Force ). Colog uard perfo rmanc e data in a 0 patie nt pivot al study using colon oscop y as the refer ence metho d [facility] ion: www.e xactl abs.c om/re sulluz . Addit ional descr iptio n of the Colog uard test proce ss, warni ngs and preca ution s can be found at www.c ologu vinod.c om. Not Available [facility] (Cologuard Orders Only) [address] [facility] [address], [place], [address], 06/19/2024 17:47:07 05/15/20 24 05/15/2024 DEXA, axial skele ton [facility] [facility] [facility] [address] [facility] [place] [address] Patien t Name: DEVENDRA TAN Access ion #: [id number] Sex: F : 1954 8 Dictat ed By: Saadia Basurto Attend ing Physic jazmyne: YUMIKO CHAPMAN CE Orderi Physic jazmyne: YUMIKO CHAPMAN CE Exam Date: 2023 11:01 AM Exam Name: XR DEXA-H IPS PELVIS SPINE Admitt ing Diagno sis(es ): INDICA TION: 69 years old, Female ; senile osteop orosis . Postmjerome pelaez al. DEXA SCAN: BONE DENSIT Y REPORT : AP SPINE (L1-L4 ) : T Score: 0.9 LEFT HIP TOTAL : T Score: 1.0 RT HIP TOTAL : T Score: 0.96 TOTAL BILAT HIP AVG: T Score: 0.98 10 YEAR FRACTU RE RISK* Not provid ed. IMPRES LEONEL: 1. Normal bone minera l densit y of the lumbar spine. 2. Normal bone minera l densit y of the bilate ral hips. ------ ------ ------ ------ ------ ------ ------ ------ ----- *FRAX versio n 3.08. Fractu re probab ility calcul ated for an untrea thomas patien t. Fractu re probab ility may be lower if the patien t has receiv ed treatm ent. T-scor e: compar breanne by yordan jalloh deviat ion ([place]) to a young adult popula gary mckenzie radha for sex and ethnic ity (used for catarina pelaez al women and men >50 years) and classi fied by WHO criter ia. Page 1 [facility] [place] [address] Patien t Name: DEVENDRA TAN Access ion #: [id number] Sex: F : 1954 8 Dictat ed By: Saadia Basurto Attend ing Physic jazmyne: CAROLE SEXTON Physic jazmyne: YUMIKO CHAPMAN Exam Date: 2023 11:01 AM Exam Name: XR DEXA-H IPS PELVIS SPINE Admitt ing Diagno sis(es ): -1.0: normal <-1.0 to >-2.5: osteop enia -2.5: osteop orosis -2.5 plus fragil ity fractu re: severe osteop orosis Z-scor e: compar ed by [place] to an age, sex, and ethnic ity popula tion (used for premen opausa l women, men <50 years, and childr en instea d of T-scor e WHO criter ia 4) <-2.0: below expect ed range/ low bone densit y for age, and a cause should be sought Electr onical ly Signed by: Saadia Basurto at 2023 14:24: 04 PM Page 2 [email or web address] [facility] (Imaging) [address] [place], [address], 05/15/2024 16:54:12 Result Notes None recorded. 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 2021 Not Available [facility] 4 20:56:45 Sciatica 08396809 Active Not Available [facility] 4 20:56:45 Gastroeso phageal reflux disease 560800710 Active Not Available [facility] 4 20:56:45 Osteoarth ritis of knee 770078211 Active Not Available [facility] 4 20:56:45 Pure hyperchol esterolem ia 263084820 Active Not Available [facility] 4 20:56:45 Syncope 186265462 Active Not Available [facility] 4 20:56:45 Knee pain Active Not Available [facility] 4 20:56:45 Depressiv e disorder 28829764 Active Not Available [facility] 4 20:56:45 Spinal stenosis of lumbosacr al region 799764098 Active Not Available [facility] 4 20:56:45 Dyslipide abril 232611247 Active 2021 Not Available [facility] 4 20:56:45 Hypertens nasim disorder 51930234 Completed 201612/15/2020 Not Available [facility] 3 06:13:58 Osteoarth ritis 152942601 Active Not Available [facility] 4 20:56:45 Contact dermatiti s 16712864 Active Not Available [facility] 4 20:56:45 Clostridi um difficile colitis 054218011 Active Not Available [facility] 4 20:56:45 Type 2 diabetes mellitus 07017624 Active Not Available [facility] 4 20:56:45 Uncontrol led type 2 diabetes mellitus 686567015 Active 2021 Not Available [facility] 4 20:56:45 Carpal tunnel syndrome 92112674 Active Not Available [facility] 4 20:56:45 Essential hypertens ion 02787527 Active 2020 Not Available [facility] 4 20:56:45 Hyperglyc emia 98006932 Completed Not Available [facility] 3 06:13:59 Type 2 diabetes mellitus without complicat ion 023712378 Active 2022 Not Available [facility] 4 20:56:45 Obese class II 62731653048 4105 Active 2022 Not Available [facility] 4 20:56:45 Hyperlipi demia 82738589 Active 2022 Not Available [facility] 4 20:56:45 Acute bronchiti s 25732797 Active 2022 Rodolfo Chapman MD [address], [place] [address], [place], [address] , [facility] [employer] [facility] 3 13:01:13 Vitamin D deficienc y 41624366 Active 2023 Rodolfo Chapman MD [address], [facility] [address], [place], [address] , [facility] [employer] [facility] 4 15:39:24 Senile osteoporo sis 43508770 Active 2023 Deepti peralta, [facility] 4 15:44:03 Chest pain 18786343 Active 2024 Rodolfo Chapman MD [address], [facility] [address], [place], [address] , [facility] 5 15:22:44 Atypical chest pain 508219168 Active 2024 Deepti Parker fabian, [facility] 5 15:55:42 Problem Notes None recorded. Procedures Surgical History Date Name Laterality Status Provider Name and Address Organization Details Recorded Time 4 Medicare Wellness CPT Code, subsequent completed Brandy Berg RN [facility] 05/13/2024 15:21:56 3 Medicare Wellness CPT Code, subsequent completed Brandy Berg RN [facility] 12/19/2022 11:23:59 1 Date of Last Mammogram completed Brandy Berg RN [facility] 12/19/2022 11:25:47 1 Most Recent Bone Density completed Brandy Berg RN [facility] 12/19/2022 11:25:55 4 Date of Last Colonoscopy completed Brandy Berg RN [facility] 12/19/2022 11:26:05 Imaging Results Imaging Date Name Status LastModified by Organiz ation Details LastModified Time 05/15/2024 DEXA, axial skeleton completed [address] (Imaging) [address] [place], [address], 05/15/2024 16:54:12 Procedure Notes None recorded. Medical Equipment None Reported. Allergies Allergen ID Allergen Name Allergen Category Reaction Reaction Severity Criticality Documentation Date Start Date Code Code System Note Provider Name and Address Organization Details Recorded Time 38667 Product containin g penicilli n and antibioti c (product) medicatio n hives Not available Not available 12/05/2022 68201 05 SNOMED RASH Not Available [facility] 3 06:18:38 Medications Name Sig Start Date Stop Date Status Note LastModified by Organization Details LastModified Time Pravachol 40 mg tablet Take 2 tablets every day by oral route at bedtime. 2012 active Not Available Not Available Not Avai lable cyclobenz aprine 10 mg tablet TAKE 1 TABLET BY MOUTH TWICE DAILY 2024 active Not Available Not Available Not Avai lable atorvasta tin 40 mg tablet TAKE 1 TABLET BY MOUTH DAILY 09/24 completed Not Available Not Available Not Available metformin 500 mg tablet TAKE 1 TABLET BY MOUTH TWICE DAILY 2023 active Not Available Not Available Not Avai lable atorvasta tin 80 mg tablet TAKE 1 TABLET BY MOUTH EVERY DAY 2023 active Not Available Not Available Not Avai lable atorvasta tin 20 mg tablet TAKE 1 TABLET BY MOUTH EVERY DAY 06/16 completed Not Available Not Available Not Available clindamyc in HCl 300 mg capsule 10/16 completed Not Available Not Available Not Available azithromy fabiano 250 mg tablet TAKE PER PACKAGE INSTRUCT IONS. active Not Available Not Available No t Available ofloxacin 0.3 % eye drops 01/06 completed Not Available Not Available Not Available benzonata te 200 mg capsule TAKE 1 CAPSULE BY MOUTH THREE TIMES DAILY active Not Available Not Available No t Available lisinopri l 20 mg tablet TAKE 1 TABLET BY MOUTH EVERY DAY 2023 active Not Available Not Available Not Avai lable prednison e 20 mg tablet TAKE 3 TABLETS BY MOUTH DAILY FOR 5 DAYS 12/10 completed Not Available Not Available Not Available lovastati n 40 mg tablet Take 2 tablets every day by oral route. 12/19 completed Not Available Not Available Not Available Lantus U-100 Insulin 100 unit/mL subcutane ous solution INJECT 15 UNITS UNDER THE SKIN EVERY DAY 11/21 completed Not Available Not Available Not Available promethaz ine 6.25 mg-codein e 10 mg/5 mL syrup Take 5 ML EVERY 6 HOURS by oral route PRN for cough 06/18 completed Not Available Not Available Not Available diphenoxy late-atro pine 2.5 mg-0.025 mg tablet Take by oral route one tablet q 4 hours prn for diarrhea active Not Available Not Available No t Available hydrocodo ne 10 mg-acetam inophen 325 mg tablet one every four hours not to exceed five per day for lumbar radiculo gato 06/19 completed Last Name First Name Street Address City State Zip Date of Date Filled Label Name Strength Metric Qty/Days Supply Payment Type ? Pharmacy Name/ City [facility] [address] [place] [address] 7 9 HYDROCOD ON-[place] 10-325 150/30 [facility] [place] RODOLFO CHAPMAN [address] [place] [address] 7 9 HYDROCOD ON-[place] 10-325 150/25 [facility]anc [facility] [place] RODOLFO CHAPMAN [address] [place] [address] 7 9 PROMETHA ZINE-COD EINE 6.25- 200/10 Ins[facility]anc [facility] [address] [place] [address] 7 9 HYDROCOD ON-ACET[place] 10-325 150/30 [facility]anc e [facility] RODOL[place] SKINNER [address] [place] [address] 7 9 PROMETHA ZINE-COD EINE 6.25- 200/10 Private Pay [facility] RODOL[place] SKINNER [address] [place] [address] 7 9 HYDROCOD ON-[place]ETA [place] 10-325 150/30 Ins[facility]anc e [facility] RODOL[place] SKINNER [address] [place] [address] 7 9 HYDROCOD ON-[place] 10-325 150/25 [facility]anc e [facility] [place] RODOLFO KEITH [address] [place] [address] 7 9 HYDROCOD ON-[place] 10-325 150/30 Ins[facility]anc [facility] [employer] RODOLFO CHAPMAN[address] [facility] [id number] 7 9 HYDROCOD ON-ACETA [place] 10-325 150/30 [facility]anc [facility] [place] RODOLFO CHAPMAN1 [address] [facility] [id number] 7 09/22/20 18 HYDROCOD ON-ACETA [place] 10-325 150/30 [facility] [place] CHAPMAN Not Available Not Available Not Available glimepiri de 2 mg tablet TAKE 1 TABLET BY MOUTH TWICE DAILY 03/11 completed Not Available Not Available Not Available glimepiri de 1 mg tablet Take 1 tablet every day by oral route. 10/16 completed Not Available Not Available Not Available ketorolac 10 mg tablet TAKE 1 TABLET BY MOUTH EVERY 4 TO 6 HOURS. NOT TO EXCEED 40 MG IN 24 HOURS FOR UP TO 5 DAYS TOTALUSE 04/02 completed Not Available Not Available Not Available ketorolac 0.5 % eye drops 01/06 completed Not Available Not Available Not Available lancets use to test blood sugar 4 times a day 2021 active Not Available Not Available Not Avai lable citalopra m 20 mg tablet TAKE 1 TABLET BY MOUTH DAILY 2023 active Not Available Not Available Not Avai lable prednisol one acetate 1 % eye drops,[facility] 01/06 completed Not Available Not Available Not Available lorazepam 0.5 mg tablet TAKE 1 TABLET BY MOUTH THREE TIMES DAILY 01/06 completed Not Available Not Available Not Available Flagyl 500 mg tablet Take 1 tablet every 8 hours by oral route. 2014 active Not Available Not Available Not Avai lable pantopraz ole 40 mg tablet,de layed release active Not Available Not Available Not Available neomycin- polymyxin -dexameth 3.5 mg/mL-10, 000 unit/mL-0 .1% eye drops 10/16 completed Not Available Not Available Not Available lisinopri l 10 mg tablet TAKE 1 TABLET BY MOUTH EVERY DAY 08/16 completed Not Available Not Available Not Available glimepiri de 4 mg tablet TAKE 1 TABLET BY MOUTH TWICE DAILY active Not Available Not Available No t Available Levaquin 500 mg tablet Take 1 tablet every 24 hours by oral route for 10 days. 06/18 completed Not Available Not Available Not Available insulin lispro (U-100) 100 unit/mL subcutane ous solution inject 20 units before each meal 09/19 completed Not Available Not Available Not Available Bonaparte 7.5 mg-325 mg tablet Take 1 tablet 4 times a day by oral route. 11/19 completed HIPAA WARNING HIPAA and all confiden tiality and disclosu re [place] Law cover the informat ion containe d in this database Increase Text Size Decrease Text Size Restore Default Font-Siz e Click to Resize Text Last Name First Name Street Address City State Zip Date of Date Filled Label Name Strength Metric Qty/Days Supply Payment Type ? Pharmacy Name/ City Prescrib er Name [facility] [address] [place] [id number] 7 09/23/20 19 HYDROCOD ONE BITARTRA TE-ACETA MINOP[place] 7.5MG-32 5MG 60/15 [facility] RODOLFO SKINNER MD [place] [address] 7 08/24/20 19 HYDROCOD ONE BITARTRA TE-ACETA [place] 7.5MG-32 5MG 120/30 [facility] RODOLFO SKINNER [place] [address] 7 07/24/20 19 HYDROCOD ONE BITARTRA TE-ACETA [place]OP[place] 7.5MG-32 5MG 120/30 Ins[facility]anc e [facility] RODOLFO SKINNER MD [place] [address] 7 07/22/20 19 compound drug KETAMINE HYDROCHL ORIDE 100% 60/30 [facility] [place] [facility] [address] 7 9 HYDROCOD ONE BITARTRA TE-ACETA MINOPHE 7.5MG-32 5MG 120/30 Insuranc e [facility] [employer] RODOLFO CHAPMAN MD [address] [facility] [phone] 7 9 HYDROCOD ON-ACETA [place] 10-325 150/30 [facility]anc e [facility] [place] RODOLFO CHAPMAN MD [address] [facility] [address] 7 9 HYDROCOD ON-ACETA [place] 10-325 150/30 [facility] [place] RODOLFO KEITH MD [address] [facility] [address] 7 9 HYDROCOD ON-ACETA [place] 10-325 150/25 [facility] RODOLFO SKINNER MD [address] [facility] [id number] 7 9 PROMETHA ZINE-COD EINE 6.25-10 200/10 [facility] [employer] RODOLFO CHAPMAN MD [address] [facility] [id number] 7 9 HYDROCOD ON-ACETA [place] 10-325 150/30 [facility]anc [facility] [place] RODOLFO KEITH MD [address] [facility] [address] 7 9 PROMETHA ZINE-COD EINE 6.25-10 200/10 Private Pay [facility] RODOLFO SKINNER Not Available Not Available Not Available methylpre dnisolone 4 mg tablets in a dose pack FOLLOW PACKAGE [employer]IO NS 12/19 completed Not Available Not Available Not Available albuterol sulfate HFA 90 mcg/actua tion aerosol inhaler INHALE 2 PUFFS BY MOUTH EVERY 4 HOURS active Not Available Not Available No t Available Bonaparte 5 mg-325 mg tablet Take 1 tablet 4 times a day by oral route. 02/17 completed CLEMENCIA CASTELLANOS 7 0 HYDROCOD ON-ACETA MINOPHEN 5MG-325M G 120 30 [facility] [place] RODOLFO KEITH MD 7 10/09/2019 HYDROCOD ONE BITARTRA TE-ACETA MINOPHE 7.5MG-32 5MG 28 7 [facility] [place] RODOLFO KEITH MD 7 09/23/20 19 HYDROCOD ONE BITARTRA TE-ACETA [place] 7.5MG-32 5MG 60 15 [facility] [place] RODOLFO KEITH MD 7 08/24/20 19 HYDROCOD ONE BITARTRA TE-ACETA MINOPHE 7.5MG-32 5MG 120 30 [facility] [place] RODOLFO KEITH MD 7 07/24/20 19 HYDROCOD ONE BITARTRA TE-ACETA MINOPHE 7.5MG-32 5MG 120 30 [facility] 7 07/22/20 19 60 [address] [facility] 7 9 HYDROCOD ONE BITARTRA TE-ACETA MINOPHE 7.5MG-32 5MG 120 30 [facility] [place] RODOLFO KEITH MD 7 9 HYDROCOD ON-ACETA [place] 10-325 150 30 [facility] [place] RODOLFO CHAPMAN MD 7 9 HYDROCOD ON-ACETA [place] 10-325 150 30 [facility] [place] RODOLFO KEITH Not Available Not Available Not Available metformin ER 500 mg tablet,ex tended release 24 hr TAKE 2 TABLETS BY MOUTH TWICE DAILY 04/18 completed Not Available Not Available Not Available neomycin 3.5 mg/g-poly myxin B 10,000 unit/g-de xameth 0.1 % eye oint APPLY A SMALL AMOUNT OF OINTMENT TO THE AFFECTED EYE TWICE DAILY FOR 10 DAYS active Not Available Not Available No t Available Q-Dryl 12.5 mg/5 mL oral liquid 12/31 completed Not Available Not Available Not Available Novolog FlexPen U-100 Insulin aspart 100 unit/mL (3 mL) subcutane ous ADMINIST ER 20 UNITS UNDER THE SKIN BEFORE MEALS 06/17 completed Not Available Not Available Not Available fenofibra te 160 mg tablet TAKE 1 TABLET BY MOUTH DAILY 2023 active Not Available Not Available Not Avai lable Bentyl 10 mg 2014 active Not Available Not Available Not Avai lable Varsha Aspirin 81 mg 01/06 completed Not Available Not Available Not Available Humalog Mix 75-25 KwikPen U-100 insulin 100 unit/mL subcutane ous pen Inject 10 units twice a day by subcutan eous route. 05/20 completed Not Available Not Available Not Available Humalog KwikPen (U-100) Insulin 100 unit/mL subcutane ous inject 20 units before each meal 06/17 completed Not Available Not Available Not Available melatonin 5 mg tablet Take 1 tablet every day by oral route. 01/06 completed Not Available Not Available Not Available OneTouch Verio test strips USE ONE STRIP TO TEST GLUCOSE FOUR TIMES DAILY active Not Available Not Available No t Available OneTouch Verio test strips use to test 4 times daily 04/30 completed Not Available Not Available Not Available pen needle, diabetic 32 gauge x 3/16 use to administ er insulin 4 times a day 2021 active Not Available Not Available Not Avai lable EpiPen 2-Javier 0.3 mg/0.3 mL injection , auto-inje ctor 04/17 completed Not Available Not Available Not Available TRUEplus Lancets 30 gauge USE FOUR TIMES DAILY active Not Available Not Available No t Available BD Insulin Syringe Ultra-Fin e 1 mL 31 gauge x 5/16 use one daily 06/20 completed Not Available Not Available Not Available Invokana 100 mg tablet Take 1 tablet every day by oral route. 08/16 completed Not Available Not Available Not Available Farxiga 10 mg tablet active Not Available Not Available Not Available Farxiga 5 mg tablet Take 1 tablet every day by oral route for 7 days. active Not Available Not Available No t Available Levemir FlexTouch U-100 Insulin 100 unit/mL (3 mL) subcutane ous pen Inject 20 units every day by subcutan eous route at bedtime. 06/18 completed Not Available Not Available Not Available Jardiance 10 mg tablet Take 1 tablet every day by oral route. 2023 active Not Available Not Available Not Avai lable Jardiance 25 mg tablet Take 1 tablet every day by oral route in the morning for 90 days. 07/30 completed Not Available Not Available Not Available Humalog KwikPen U-200 Insulin 200 unit/mL (3 mL) subcutane ous ADMINIST ER 26 UNITS UNDER THE SKIN THREE TIMES DAILY BEFORE MEALS active Not Available Not Available No t Available Tresiba FlexTouch U-100 insulin 100 unit/mL (3 mL) subcutane ous pen ADMINIST ER 35 UNITS TWICE DAILY 2024 active Not Available Not Available Not Avai lable OneTouch Verio Flex Start kit use to test 4 times a day E11.9 2021 active Not Available Not Available Not Avai lable Basaglar KwikPen U-100 Insulin 100 unit/mL (3 mL) subcutane ous Inject 54 units every day by subcutan eous route at bedtime. 12/18 completed Not Available Not Available Not Available Basaglar KwikPen U-100 Insulin inject 54 units at bedtime 06/14 completed Not Available Not Available Not Available Bydureon BCise 2 mg/0.85 mL subcutane ous auto-inje ctor Inject 2 mg every week by subcutan eous route at dinner for 90 days. 07/30 completed Not Available Not Available Not Available Ozempic 0.25 mg or 0.5 mg (2 mg/1.5 mL) subcutane ous pen injector Inject 0.25 mg every week by subcutan eous route with meals for 28 days. 04/18 completed Not Available Not Available Not Available OneTouch Ultra Blue Test Strip TEST BLOOD GLUCOSE FOUR TIMES DAILY E11.9 04/02 completed Not Available Not Available Not Available Prisca Max U-300 SoloStar 300 unit/mL (3 mL) subcutane ous insulin pen Inject 48 units every day by subcutan eous route at bedtime. active Not Available Not Available No t Available BD Marjorie 2nd Gen Pen Needle 32 gauge x USE TO ADMINIST ER INSULIN FOUR TIMES DAILY active Not Available Not Available No t Available OneTouch Delica Plus Lancet 33 gauge DIRECTED FOUR TIMES DAILY active Not Available Not Available No t Available OneTouch Verio Reflect Meter USE TO TEST BLOOD SUGAR 4 TIMES DAILY. 2023 active Not Available Not Available Not Avai lable Vitals Date Recorded Body height Body mass index (BMI) Body weight Body temperature Heart rate Oxygen saturation Oxygen saturation in Arterial blood by Pulse oximetry Systolic blood pressure Diastolic blood pressure Provider Name and Address Organization Details Last Updated DateTime 3 157.48 cm 39.5 kg/m2 19256.9 5 g 96.8 [degF] 90 /min 94 % 94 % 140 mm[Hg] 88 mm[Hg] Janie Bhakta MA [employer] 3 11:26:23 Date Recorded Body height Body mass index (BMI) Body weight Heart rate Body temperature Oxygen saturation Oxygen saturation in Arterial blood by Pulse oximetry Systolic blood pressure Diastolic blood pressure Provider Name and Address Organization Details Last Updated DateTime 3 157.48 cm 39.3 kg/m2 53955.3 6 g 78 /min 97 [degF] 96 % 96 % 122 mm[Hg] 70 mm[Hg] Jennifer Vitale [employer] 3 11:29:04 Date Recorded Body height Body mass index (BMI) Body weight Heart rate Body temperature Oxygen saturation Oxygen saturation in Arterial blood by Pulse oximetry Systolic blood pressure Diastolic blood pressure Provider Name and Address Organization Details Last Updated DateTime 4 157.48 cm 39.3 kg/m2 26723.3 6 g 87 /min 97 [degF] 95 % 95 % 120 mm[Hg] 72 mm[Hg] Jennifer Vitale [facility] 4 11:50:19 Date Recorded Body height Body mass index (BMI) Body weight Heart rate Body temperature Oxygen saturation Oxygen saturation in Arterial blood by Pulse oximetry Systolic blood pressure Diastolic blood pressure Provider Name and Address Organization Details Last Updated DateTime 4 157.48 cm 39.5 kg/m2 73733.9 5 g 93 /min 97.2 [degF] 96 % 96 % 136 mm[Hg] 72 mm[Hg] OLIVA Gaston [facility] [employer] [facility] 4 15:14:15 Date Recorded Pain severity - 0-10 verbal numeric rating [Score] - Reported Provider Name and Address Organization Details Last Updated DateTime 05/13/2024 7 Brandy Berg RN [facility] 05/13/2024 15:22:11 Date Recorded Body height Body mass index (BMI) Body weight Heart rate Body temperature Oxygen saturation Oxygen saturation in Arterial blood by Pulse oximetry Systolic blood pressure Diastolic blood pressure Provider Name and Address Organization Details Last Updated DateTime 5 156.21 cm 39.4 kg/m2 37170.5 8 g 67 /min 97 [degF] 96 % 96 % 160 mm[Hg] 84 mm[Hg] Jennifer Vitale [facility] [employer] [facility] 5 15:16:59 Social History Question Answer Notes LastModified by Organizat ion Details LastModified Time Tobacco Smoking Status Never Smoker Not Available [facility] 12/05/2022 06:10:05 Do You Have An Advance Directive? No [id number] Information not available 12/05/2022 What Is Your Level Of Alcohol Consumption? None [id number] Information not available 12/05/2022 Are You Blind Or Do You Have Difficulty Seeing? No [id number] Information not available 12/05/2022 Are You Deaf Or Do You Have Serious Difficulty Hearing? No [id number] Information not available 12/05/2022 What Type Of Diet Are You Following? [id number] [id number] Information not available 12/05/2022 Do You Or Have You Ever Used E-cigarettes Or Vape? Never Used Electronic Cigarettes [id number] Information not available 12/05/2022 Have There Been Any Changes To Your Family Or Social Situation? No [email or web address] Information not available 12/19/2022 What Is The Fluoride Status Of Your Home? Unknown [email or web address] Information not available 12/19/2022 Do You Use Insect Repellent Routinely? No [email or web address] Information not available 12/19/2022 Where Do You Live? SingleLevelHouse [email or web address] Information not available 12/19/2022 Are You Able To Care For Yourself? Yes [email or web address] Information not available 12/19/2022 Are You Blind Or Do Yo Have Difficulty Seeing? No Information not available 12/19/2022 Are You Deaf Or Do You Have Serious Difficulty Hearing? No [email or web address] Information not available 12/19/2022 Live Alone Of With Others? With Others [email or web address] Information not available 12/19/2022 Do You Have A Medical Power Of Training Systems Officer? No [email or web address] Information not available 12/19/2022 What Was The Date Of Your Most Recent Tobacco Screening? 05/13/2024 [email or web address] Information not available 05/13/2024 Do You Have Any Pets? No Information not available 12/19/2022 Do You Use Your Seat Belt Or Car Seat Routinely? Yes [email or web address] Information not available 12/19/2022 Do You Have Smoke And Carbon Monoxide Detectors In Your Home? Yes [email or web address] Information not available 12/19/2022 Are You Passively Exposed To Smoke? No [email or web address] Information not available 12/19/2022 Do You Or Have You Ever Used Smokeless Tobacco? Never Used Smokeless Tobacco [id number] Information not available 12/05/2022 Are There Any Smokers In Your House? No [email or web address] Information not available 12/19/2022 Do You Use Sunscreen Routinely? No [email or web address] Information not available 12/19/2022 Have You Recently Traveled Abroad? No [email or web address] Information not available 12/19/2022 Sex: Unknown Functional Status Question Answer Note LastModified by Organizat ion Details LastModified Time Do you have difficulty walking or climbing stairs? Yes uses cane or walker [email or web address] Information not available 05/13/2024 Do you have transportation difficulties? No [email or web address] Information not available 12/19/2022 Are you able to walk? YESASSIST uses cane or walker [email or web address] Information not available 05/13/2024 Do you have difficulty doing errands alone? No [email or web address] Information not available 12/19/2022 Are you able to care for yourself? Yes [email or web address] Information n ot available 12/19/2022 Do you have difficulty dressing or bathing? No [id number] Information not available 12/05/2022 What is your exercise level? None [email or web address] Information not available 05/13/2024 Mental Status Question Answer Note LastModified by Organizat ion Details LastModified Time Do you have difficulty concentrating, remembering or making decisions? No [id number] Information not available 12/05/2022 Family History Nothing Reported Notes:Mother 76 from co mplications of diabetes and hypertension Father in his 30's from a drowning accident Has two brothers and one sister all living and in good health Medical History Condition Response NERVE DISEASE N BLINDNESS N RHEUMATIC FEVER N KIDNEY STONES N BLADDER PROBLEMS N OTHER # 1 N POLIO N LUNG DISEASE/DISORDER N RADIATION / CHEMOTHERAPY N COPD N Other # 2 N BLOOD DISEASES N SURGERY N EAR OR HEARING PROBLEMS N MUMPS N BOWEL PROBLEMS N DEPRESSION (INCLUDING POST ) Y STROKE/TIA N ULCERS N BENIGN PROSTATIC HYPERPLASIA N MEASLES N MYOCARDIAL INFARCTION N OBESITY N GERD/NAUSEA Y ANEURYSM N URINARY/BLADDER/KIDNEY PROBLEMS N INPATIENT PSYCH CARE N CORONARY ARTERY DISEASE (CAD) N ADDICTION CONCERNS N Impotence N ENDOMETRIOSIS N USE OF BLOOD THINNERS N SKIN PROBLEMS N GASTROINTESTINAL DISORDER N PERIPHERAL VASCULAR DISEASE N MUSCLE,JOINT OR BONE PROBLEMS N GASTROINTESTINAL BLEEDING N BLOOD CLOTS N ASTHMA N CATARACTS N ERECTILE DYSFUNCTION N VARICOSITIES N GI PROBLEMS N Low Testosterone N INFERTILITY N AIDS/HIV N LIVER DISEASE N MALE HYPOGONADISM N HYPERTENSION Y Deficiency N ANXIETY DISORDER N BLOOD TRANSFUSION N ANEMIA/BLOOD DISORDER N CHRONIC EAR INFECTIONS N BRONCHITIS N TUBERCULOSIS N GLAUCOMA N FOOT PROBLEM N DIVERTICULITIS N SLEEP APNEA N CHICKENPOX N INFECTIOUS DISEASE N PROSTATE N HEART ARRHYTHMIA N INSOMNIA N HIGH CHOLESTEROL / HYPERLIPIDEMIA Y EYE PROBLEMS N HYPERTHYROIDISM N NEUROLOGICAL PROBLEMS N EDEMA N CHRONIC PAIN SYNDROME N HYPOTHYROIDISM N CONSTIPATION N CAROTID BLOCKAGE N BACK / NECK PROBLEMS Y HAVE YOU BEEN HOSPITALIZED OR SEEN IN [facility] IN THE PAST YEAR ? N ATHEROSCLEROSIS N BREAST PROBLEMS N DIALYSIS N ECZEMA N OSTEOPOROSIS N ARTHRITIS Y NO SIGNIFICANT PAST MEDICAL HISTORY N APPENDICITIS N DIABETES, TYPE Y BAD TEETH N ENT N HEARTBURN / REFLUX N AUTISM SPECTRUM DISORDER (ASD) N HEPATITIS / LIVER DISEASE N PULMONARY DISEASE N GOUT N SLEEP DISORDER N ALZHEIMER'S DISEASE N Brain Problems N DEMENTIA N HERPES N SEIZURES/EPILEPSY N HEADACHES/MIGRAINES N VASCULAR DISEASE N PACEMAKER N Blood Disorder N DIZZINESS N HEART DISEASE/HEART PROBLEMS N KIDNEY DISEASE N MULTIPLE SCLEROSIS N CANCER: SPECIFY N CARDIAC ARRHYTHMIA N ANESTHESIA COMPLICATIONS N ATRIAL FIBRILLATION N Gall Stones N PULMONARY EMBOLISM N AUTOIMMUNE DISEASE N Gynecological History Statement/Question Response Date of Last Pap Date of Last Mammogram 06/27/2020 Date of Last Colonoscopy 03/17/2014 Date of Last Mammogram 08/17/2021 Most Recent Bone Density 04/17/2021 Obstetrics History GPAL:G 0 P 0 0 0 0 Immunizations Vaccine Type Date Status Note Provider Nam e and Address Organization Details Recorded Time Influenza, high-dose, quadrivalent, PF 3 completed Rodolfo Chapman MD [address], [place], [address], [facility] 07/18/2023 11:33:19 SARS-COV-2 (COVID-19) vaccine, UNSPECIFIED 2 completed Not Available [facility] 11/26/2023 20:56:45 SARS-COV-2 (COVID-19) vaccine, UNSPECIFIED 1 completed Not Available [facility] 11/26/2023 20:56:46 SARS-COV-2 (COVID-19) vaccine, UNSPECIFIED 1 completed Not Available [facility] 11/26/2023 20:56:45 Pneumococcal conjugate PCV20, polysaccharide [id number] conjugate, adjuvant, PF 4 completed OLIVA [place], [place] [employer] [facility] 05/13/2024 16:36:06 Past Encounters Encounter ID Performer Location Encounter Start Date Encounter Closed Date Diagnosis/Indication Diagnosis SNOMED-CT Code Diagnosis ICD10 Code Diagnosis Note [id number] [facility] [address] [address] 12/15/2020 00:00:00 12/15/2020 13:02:26 [id number] [facility] [address] [address] 04/13/2021 00:00:00 04/13/2021 13:03:22 [id number] [facility] Internal Med [facility] [address] [address] 08/16/2021 00:00:00 08/16/2021 12:35:41 [id number] [facility] Internal [facility] [address] [address] 12/11/2021 00:00:00 12/11/2021 11:24:55 [id number] _ATHENA_M IGRATION_ DEFAULT_1 _1 , 12/28/2021 00:00:00 12/28/2021 17:57:12 [id number] [facility] Internal [facility] [address] [address] 04/02/2022 00:00:00 04/02/2022 11:30:21 [id number] _ATHENA_M IGRATION_ DEFAULT_1 _1 , 04/05/2022 00:00:00 04/05/2022 13:09:24 [id number] [facility] Internal Med [facility] [address] [address] 07/30/2022 00:00:00 07/30/2022 12:48:11 [id number] [facility] [place] [address] [place] [address] 08/02/2022 00:00:00 08/02/2022 18:37:39 [id number] Rodolfo Chapman MD [facility] Internal Med [facility] [address] [address] 12/19/2022 10:43:14 12/19/2022 11:41:11 Adult health examination 259269452 Z00.00 Screening for disorder 176720078 Z13.9 Essential hypertension 88349957 I10 Pure hypercholesterolemia 624889409 E78.00 Type 2 amalia betes mellitus 08078803 E11.9 [id number] Rodolfo Chapman MD [facility] Internal Med [facility] [address] [address] 04/18/2023 11:06:52 04/18/2023 11:40:32 Essential hypertension 29788712 I10 Pure hypercholesterolemia 656063750 E78.00 Uncontroll ed type 2 diabetes mellitus 265410106 E11.65 Obese class II 061593546 1 40375 E66.9 [id number] Rodolfo Chapman MD [facility] Internal Med [facility] [address] [address] 07/18/2023 11:17:44 07/18/2023 11:48:15 Administration of influenza vaccine 10935188 Z23 Essential hypertension 59413308 I10 Pure hypercholesterolemia 074165197 E78.00 Spinal soto nosis of lumbosacral region 547733916 M48.07 Obese class II 213719625 1 98297 E66.9 Type 2 amalia betes mellitus 75303977 E11.9 [id number] Rodolfo Chapman MD [facility] Internal Med [facility] [address] [address] 0 11/14/2023 11:21:12 11/14/2023 12:15:12 Essential hypertension 06053620 I10 Pure hypercholesterolemia 769216953 E78.00 Obese class II 480911597 1 33623 E66.9 Type 2 amalia betes mellitus 43389829 E11.9 [id number] Rodolfo Chapman MD [facility] Internal Med [facility] [address] [address] 05/13/2024 14:49:04 05/13/2024 15:47:25 Adult health examination 946559459 Z00.00 Screening for disorder 867005876 Z13.9 Essential hypertension 37294526 I10 Pure hypercholesterolemia 052838618 E78.00 Type 2 amalia betes mellitus without complication 539320475 E11.9 Obese class II 496120456 1 04723 E66.9 Vitamin D deficiency 347 95949 E55.9 [id number] Rodolfo Chapman MD [facility] Internal Med [address] [place] [address] 11/11/2024 14:47:42 11/11/2024 15:59:04 Gastroesophageal reflux disease 242517767 K21.9 Obese class II 430796458 1 40009 E66.9 Pure hypercholesterolemia 779993192 E78.00 Type 2 amalia betes mellitus without complication 853968228 E11.9 Essential hypertension 24747098 I10 Chest pain 12371349 R07. 9 Health Concerns Section Related Observation LastModified by Organization Detai ls LastModified Time None Recorded Concern Status LastModified by Organization Details LastModified Time None Recorded Advance Directives Directive N: Payers Encounter Date Sequence Insurance Name Policy Number Policy León Covered Member ID León Member ID Guarantor Name 04/18/2023 1 [facility] (MEDICARE REPLACEMENT/A DVANTAGE - HMO) [id number] Marialuz A Clemencia [id number] Marialuz A Clemencia 07/18/2023 1 [facility] (MEDICARE REPLACEMENT/A DVANTAGE - HMO) [id number] Marialuz A Clemencia [id number] Marialuz A Clemencia 11/14/2023 1 [facility] (MEDICARE REPLACEMENT/A DVANTAGE - HMO) [id number] Marialuz A Clemencia [id number] Marialuz A Clemencia 05/13/2024 1 [facility] (MEDICARE REPLACEMENT/A DVANTAGE - HMO) [id number] Marialuz A Clemencia [id number] Marialuz A Clemencia 11/11/2024 1 [facility] (MEDICARE REPLACEMENT/A DVANTAGE - HMO) [id number] Marialuz A Clemencia [id number] Marialuz A Clemencia Notes Date Note Type Note Provider Name and Address Organization Details Recorded Time text/html Patient Name: Italia Hooks Of Service: April ( 04.18.2023 ): 1955 Age: 68 There has been approximately a 3 lb weight gain since 12/19/2022. This represents approximately a 1.4% change in weight. Weight change attributable to lifestyle changes. Vital Signs:Blood Pressure: Sitting Rt. Arm 140/88Pulse: Sitting 90 /min and RegularRespirations: 12Height 62 in or 1.6 mWeight 216 lb or 98.0 kgBMI 39.5Temperature: 96.8 F or 36.0 CPulse Oximetry: 94 % at rest on no oxygen Chief Complaint: Addressed in HPI Problems or conditions discussed in the HPI were the only ones reviewed during the encounter.Only social and family history addressed in the HPI were reviewed during this encounter. Attendant(s): None Constitutional and Systemic Symptoms: none Medication Reconciliation: from medication list. Uafcaimxfca55/04/2023: Home sleep study test from 10/09/2021 demonstrates mild obstructive sleep apnea. History of Present Illness #1. Essential Hypertension: Stage: Stage I Interval Neurological Complaints no headaches, dizziness, weakness, visual changes, ataxia, aphasia and apraxia. No shortness of breath, orthopnea or cardiovascular symptoms. No other symptoms related to end organ damage. Pressure has been under excellent control. Currently normal. No other end organ symptoms or findings. Therapy reviewed regarding management of hypertension and includes salt restriction and Lisinopril. #2. Type II Hypercholesterolaemia: Currently taking medication and tolerating well. No interval complaints of any muscle pain or arthralgia. No significant liver changes with medications. Last lipid panel: fair control. Therapy reviewed regarding treatment of cholesterol management and include diet and Atorvastatin Calcium and Fenofibrate. #3. Type II Diabetes: Has had no polyuria polyphagia or polydipsia. Has had no hypoglycemic like responses. No new history of any numbness, tingling, weakness or visual problems. No nausea, anorexia or other constitutional symptoms. There has been no foot problems or non healing lesions. The last HAIC was unknown. Average blood sugars > 150 mg%. Checking sugars : approximately twice daily Medication Types Include: Metformin, SGLT2 inhibitors and Insulin Secondary complications include none. Macro-vascular complications include none. Therapy reviewed regarding diabetic management and include Farxiga, Humalog Pen, Metformin Hydrochloride and Tresiba Compliance: non-compliant Renal Protection: starting on a calcium stephanie Lipid management: statins Urinary microalbumin: A1 . Ophthalmological: has seen eye doctor within the last year #4. Hx of obesity. Currently Class 2 Obesity BMI 35-39.99. Has tried numerous dietary support and supplements with no benefit. Instructed on the health consequences of the obese status particularly cancer - diabetes and heart disease. Discussed new modalities of weight loss including GLP-1 medications that are used to treat diabetes. Potential candidate for bariatric surgery: No. Wishes to be evaluated by Dietary: No and was offered to be evaluated and instructed by electroencephalographic technician on weight loss diet.Medication List Reviewed and Reconciled 3Celexa 20 MG (TABLET - ORAL) One Daily For DepressionLisinopril 20 MG (TABLET - ORAL) One DailyAspirin 81 MG DailyMelatonin 5 MG (CAPSULE - ORAL) One At BedtimeAtorvastatin Calcium 80 MG (TABLET - ORAL) One DailyFish Oil Caps DilyMetformin Hydrochloride 500 MG (TABLET - ORAL) Two Twice A DayCyclobenzaprine 10 MG (TABLET - ORAL) One BidFenofibrate 160 MG (TABLET - ORAL) Once DailyVitamin D D3 50mcgVitamin C 500 MG Once DailyTresiba 450 UNITS/1.5 ML (300 UNITS/ ML) (SOLUTION - SUBCUTANEOUS) 54 Units At BedtimeHumalog Pen 20 Units Before Each MealFarxiga 10 MG TABLET, FILM COATED One DailyADRs List Reviewed 3Penicillin Rash And HivesVaccination and Hjwaodvkyodv7819-88 Covid Booster Vjttfqk2622-28 Qywoghqwy0871-30 Covid ModernaSurgical HistoryLeft TKA, Right TKA, Left CTS, Right CTSPreventative Testing Confirmed by Our Yavaybs3501/04/2023 MAMMOGRAM 4010/17/2022 ALBUMIN 4.7 G/DL H010/17/2022 MICRO ALBUMIN 12.7 MG/L10/17/2022 HAIC 8.4 % H110/14/2021 LETTER DDRWUDFBIZJNO20/01/2021 LETTER DNBWCFAWY19/12/2021 DEXA SCAN02/03/2019 CT THORAX, ABDOMEN AND KSJWKX2510/16/2017 HAIC03/17/2014 COLONOSCOPY 03/17/2024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 This represents approximately a .5% change in weight. Weight change attributable to lifestyle changes. Vital Signs:Blood Pressure: Sitting Rt. Arm 122/70Pulse: Sitting 78 /min and RegularRespiratory Rate: 12Height 62 in or 1.6 mWeight 215 lb or 97.5 kgBMI 39.3Temperature: 97 F or 36.1 CPulse Oximetry: 96 % at rest on no oxygen Chief Complaint: Addressed in HPI Problems or conditions discussed in the HPI were the only ones reviewed during the encounter.Only social and family history addressed in the HPI were reviewed during this encounter. Attendant(s): NoneConstitutional and Systemic Symptoms:none Medication Reconciliation: [facility] mild obstructive sleep apnea. History of Present Illness #1. Essential Hypertension: Stage: Stage I Interval Neurological Complaints no headaches, dizziness, weakness, visual changes, ataxia, aphasia and apraxia. No shortness of breath, orthopnea or cardiovascular symptoms. No other symptoms related to end organ damage. Pressure has been under excellent control. Currently normal. No other end organ symptoms or findings. Therapy reviewed regarding management of hypertension and includes salt restriction and Lisinopril. #2. Type II Hypercholesterolaemia: Currently taking medication and tolerating well. No interval complaints of any muscle pain or arthralgia. No significant liver changes with medications. Last lipid panel: excellent control. Therapy reviewed regarding treatment of cholesterol management and include diet and Atorvastatin Calcium. #3. Type II Diabetes: Has had no polyuria polyphagia or polydipsia. Has had no hypoglycemic like responses. No new history of any numbness, tingling, weakness or visual problems. No nausea, anorexia or other constitutional symptoms. There has been no foot problems or non healing lesions. The last HAIC was none done recently. Average blood sugars > 150 mg%. Checking sugars : several times a week Medication Types Include: Metformin, SGLT2 inhibitors and Insulin Secondary complications include none. Macro-vascular complications include none. Therapy reviewed regarding diabetic management and include Humalog Pen, Jardiance, Metformin Hydrochloride and Tresiba Compliance: non-compliant Renal Protection: PAOLA inhibitors Lipid management: statins Urinary microalbumin: A1 . Ophthalmological: has seen eye doctor within the last year #4. Spinal Stenosis: History of the Lumbar spinal stenosis. Neurogenic Claudication: at 100 feet or less. No change in level of pain, numbness, tingling or any weakness. Is able to perform activities of daily living. No urinary or fecal incontinence. No change in exercise tolerance. #5. Hx of obesity. Currently Class 2 Obesity BMI 35-39.99. Has tried numerous dietary support and supplements with no benefit. Instructed on the health consequences of the obese status particularly cancer - diabetes and heart disease. Discussed new modalities of weight loss including GLP-1 medications that are used to treat diabetes. Potential candidate for bariatric surgery: No. Wishes to be evaluated by Dietary: No and was offered to be evaluated and instructed by electroencephalographic technician on weight loss diet.Medication List Reviewed and Reconciled 07/18/2023elexa 20 MG (TABLET - ORAL) One Daily For DepressionLisinopril 20 MG (TABLET - ORAL) One DailyAspirin 81 MG DailyMelatonin 5 MG (CAPSULE - ORAL) One At BedtimeAtorvastatin Calcium 40 MG TABLET One DailyFish Oil Caps DilyMetformin Hydrochloride 500 MG (TABLET - ORAL) Two Twice A DayCyclobenzaprine 10 MG (TABLET - ORAL) One BidFenofibrate 160 MG (TABLET - ORAL) Once DailyVitamin D D3 50mcgVitamin C 500 MG Once DailyTresiba 450 UNITS/1.5 ML (300 UNITS/ ML) (SOLUTION - SUBCUTANEOUS) 56 Units At BedtimeHumalog Pen 26 Units Before MealsJardiance 10 MG TABLET, FILM COATED One DailyADRs List Reviewed 07/18/2023enicillin Rash And HivesVaccination and Txthlbanibje7156-22 Qt1688-69 Covid Booster Ucfuaxb3942-05 Safectydh8076-57 Covid ModernaSurgical HistoryLeft TKA, Right TKA, Left CTS, Right CTSPreventative Testing Confirmed by Our Fiexcli6506/28/2023 LETTER DCFRJHZZB50/13/2023 ALBUMIN 4.6 G/DL H004/18/2023 MICRO ALBUMIN 42.5 MG/L H004/18/2023 HAIC 8.7 % H001/04/2023 MAMMOGRAM 411/05/2022 LETTER FTBPHMAKFRTAD86/12/2021 DEXA SCAN02/03/2019 CT THORAX, ABDOMEN AND CTSYJF3810/16/2017 HAIC03/17/2014 COLONOSCOPY 03/17/2024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 Arm 120/72Pulse: Sitting 87 /min and RegularRespiratory Rate: 12Height 62 in or 1.6 mWeight 215 lb or 97.5 kgBMI 39.3Temperature: 97 F or 36.1 CDCCT HAIC: 8.3 Calculated MB mg%Pulse Oximetry: 95 % at rest on no oxygen Chief Complaint: Addressed in HPI Problems or conditions discussed in the HPI were the only ones reviewed during the encounter.Only social and family history addressed in the HPI were reviewed during this encounter. Attendant(s): NoneConstitutional and Systemic Symptoms:none Medication Reconciliation: from medication list. [facility] sleep study test from 10/09/2021 demonstrates mild obstructive sleep apnea. History of Present Illness #1. Essential Hypertension: Stage: Stage I Interval Neurological Complaints no headaches, dizziness, weakness, visual changes, ataxia, aphasia and apraxia. No shortness of breath, orthopnea or cardiovascular symptoms. No other symptoms related to end organ damage. Pressure has been under excellent control. Currently normal. No other end organ symptoms or findings. Therapy reviewed regarding management of hypertension and includes salt restriction and Lisinopril. #2. Type II Hypercholesterolaemia: Currently taking medication and tolerating well. No interval complaints of any muscle pain or arthralgia. No significant liver changes with medications. Last lipid panel: fair control. Therapy reviewed regarding treatment of cholesterol management and include diet. #3. Type II Diabetes: Has had no polyuria polyphagia or polydipsia. Has had no hypoglycemic like responses. No new history of any numbness, tingling, weakness or visual problems. No nausea, anorexia or other constitutional symptoms. There has been no foot problems or non healing lesions. The last HAIC was DCCT HAIC: 8.3 Calculated MB mg%. Average blood sugars unknown. Checking sugars : several times a week Medication Types Include: Metformin, SGLT2 inhibitors and Insulin Secondary complications include none. Macro-vascular complications include none. Therapy reviewed regarding diabetic management and include Humalog Pen, Jardiance, Metformin Hydrochloride and Tresiba Compliance: good Renal Protection: PAOLA inhibitors Lipid management: statins Urinary microalbumin: not performed recently . Ophthalmological: has seen eye doctor within the last year #4. Hx of obesity. Currently Class 2 Obesity BMI 35-39.99. Has tried numerous dietary support and supplements with no benefit. Instructed on the health consequences of the obese status particularly cancer - diabetes and heart disease. Discussed new modalities of weight loss including GLP-1 medications that are used to treat diabetes. Potential candidate for bariatric surgery: Yes. Wishes to be evaluated by Dietary: No and was offered to be evaluated and instructed by electroencephalographic technician on weight loss diet. Active Medication ListCelexa 20 MG (TABLET - ORAL) One Daily For DepressionLisinopril 20 MG (TABLET - ORAL) One DailyAspirin 81 MG DailyMelatonin 5 MG (CAPSULE - ORAL) One At BedtimeAtorvastatin Calcium 40 MG TABLET One DailyFish Oil Caps DilyMetformin Hydrochloride 500 MG (TABLET - ORAL) Two Twice A DayCyclobenzaprine 10 MG (TABLET - ORAL) One BidFenofibrate 160 MG (TABLET - ORAL) Once DailyVitamin D D3 50mcgVitamin C 500 MG Once DailyTresiba 450 UNITS/1.5 ML (300 UNITS/ ML) (SOLUTION - SUBCUTANEOUS) 30 Units Twice DailyHumalog Pen 26 Units Before MealsJardiance 10 MG TABLET, FILM COATED One Daily Adverse Drug Reactions ReviewedPenicillin Rash And Hives Vaccination and Ozjmhqcibrly7419-91 Kv4475-86 Covid Booster Kfljqvm7841-08 Layfndkmp4361-02 Covid Moderna Surgical Wowuaec0671-38 Left AOD4881-67 Right MFZ2541-49 Left ZLT5165-96 Right CTS Preventative Testing Confirmed by Our Acpuheh6107/18/2023 MICRO ALBUMIN <6.0 MG/L N10/09/2023 HAIC 8.3 % H006/28/2023 IXZRIZVAW84/13/2023 ALBUMIN 4.6 G/DL H001/04/2023 MAMMOGRAM 4110/14/2021 CWHOAQVYNOMQX04/12/2021 DEXA SCAN02/03/2019 CT THORAX, ABDOMEN AND EQUJTN0603/17/2014 COLONOSCOPY 03/17/2024 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 Family HistoryMother 76 from complications of diabetes and hypertensionFather in his 30's from a drowning accidentHas two brothers and one sister all living and in good health TEST RESULT RANGE UNITSHEMOGLOBIN A1C Date: 07/18/2023HA1C 8.3 4.0-6.0 % Rodolfo Chapman MD [address] [address], [place], [address], [place] [employer] 11/14/2023 12:12:23 4 text/html Patient Name: Italia Hooks Of Service: Saturday ( 05.13.2024 ): 1955 Age: 69 Chief Complaint: Addressed in HPI Problems or conditions discussed in the HPI were the only ones reviewed during the encounter.Only social and family history addressed in the HPI were reviewed during this encounter. Attendant(s): NoneConstitutional and Systemic Symptoms:none Medication Reconciliation: from medication list. [facility] sleep study test from 10/09/2021 demonstrates mild obstructive sleep apnea. History of Present Illness Reviewed the findings of the preventative health visit. Addressed all areas with the patient, patient's family or caregivers. Preventative examinations and testing immunizations - vaccinations, colonic neoplasm screening, mammograms and DEXA Scan all reviewed and ordered where patient was amenable to the recommendations. Cognitive function was normal. Depression addressed and where necessary medications were adjusted or instituted. End of life and living will briefly discussed with patient and where these can be filled out and legally executed. Other blood and imaging studies were ordered if considered necessary. Other recommendations may be found in the encounter note. #1. Essential Hypertension: Stage: Stage I Interval Neurological Complaints no headaches, dizziness, weakness, visual changes, ataxia, aphasia and apraxia. No shortness of breath, orthopnea or cardiovascular symptoms. No other symptoms related to end organ damage. Pressure has been under excellent control. Currently normal. No other end organ symptoms or findings. Therapy reviewed regarding management of hypertension and includes salt restriction and Lisinopril. #2. Type II Hypercholesterolaemia: Currently taking medication and tolerating well. No interval complaints of any muscle pain or arthralgia. No significant liver changes with medications. Last lipid panel: fair control. Therapy reviewed regarding treatment of cholesterol management and include diet and Atorvastatin Calcium. #3. Type II Diabetes: Has had no polyuria polyphagia or polydipsia. Has had no hypoglycemic like responses. No new history of any numbness, tingling, weakness or visual problems. No nausea, anorexia or other constitutional symptoms. There has been no foot problems or non healing lesions. The last HAIC was DCCT HAIC: 85.0 Calculated MB mg%. Average blood sugars > 150 mg%. Checking sugars : several times a week Medication Types Include: Metformin, Sulfonylureas, SGLT2 inhibitors and Insulin Secondary complications include none. Macro-vascular complications include none. Therapy reviewed regarding diabetic management and include Humalog Pen, Jardiance, Metformin Hydrochloride and Tresiba Compliance: good Renal Protection: PAOLA inhibitors Lipid management: statins Urinary microalbumin: not performed recently . Ophthalmological: has not seen eyed doctor in last year and instructed to make appointment with the technical aide or service center representative Active Medication ListLisinopril 20 MG (TABLET - ORAL) One DailyAspirin 81 MG DailyMelatonin 5 MG (CAPSULE - ORAL) One At BedtimeAtorvastatin Calcium 40 MG TABLET One DailyFish Oil Caps DilyMetformin Hydrochloride 500 MG (TABLET - ORAL) Two Twice A DayCyclobenzaprine 10 MG (TABLET - ORAL) One BidFenofibrate 160 MG (TABLET - ORAL) Once DailyVitamin D D3 50mcgVitamin C 500 MG Once DailyTresiba 450 UNITS/1.5 ML (300 UNITS/ ML) (SOLUTION - SUBCUTANEOUS) 35 Units Twice DailyHumalog Pen 26 Units Before MealsJardiance 10 MG TABLET, FILM COATED One Daily Adverse Drug Reactions ReviewedPenicillin Rash And Hives Vaccination and Ptpginkldrws1862-41 Prevnar Bjovkxzhu4621-29 Covid Booster Fbkqxvw3825-98 Covid Moderna Surgical Neqmhrj0076-20 Left YVQ5252-48 Right AZU7593-34 Left WOK0227-96 Right CTS Preventative Testing( ) 02/19/2024 Optometry( ) 11/14/2023 Albumin 4.3 G/DL( ) 11/14/2023 Micro Albumin 32.0 MG/L H( ) 11/14/2023 HAIC 8.5 % H( ) 01/04/2023 Mammogram 01/04/2025( ) 08/14/2022 Ophthalmology(X) 04/17/2021 DEXA Scan 04/17/2023( ) 02/03/2019 CT Thorax, Abdomen And Pelvis(X) 03/17/2014 Colonoscopy 03/17/2024 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 Family HistoryMother 76 from complications of diabetes and hypertensionFather in his 30's from a drowning accidentHas two brothers and one sister all living and in good health TEST RESULT RANGE UNITSCBC/COMPLETE BLD COUNT W/DIFF Date: 11/14/2023WHITE BLOOD CELLS 7.8 4.2-10.8 X10'3/ULHEMOGLOBIN 14.3 12.0-15.6 G/DLHEMATOCRIT 43.0 35.7-45.7 %PLATELETS 320 150-400 X10'3/ULCOMPREHENSIVE METABOLIC PANEL Date: 11/14/2023SODIUM 138 137-145 MMOL/LPOTASSIUM 4.6 3.5-5.1 MMOL/LGLUCOSE 258 70-99 MG/DLBUN 17 8-19 MG/DLCREATININE 0.77 0.66-1.25 MG/DLGFR >60ALKALINE PHOSPHATASE 112 38-126 U/LALANINE AMINOTRANSFERASE 28 0-35 U/LASPARTATE AMINOTRANSFERASE 25 15-37 U/LBILIRUBIN, TOTAL 0.70 0.20-1.30 MG/DLCALCIUM 9.9 8.4-10.2 MG/DLHEMOGLOBIN A1C Date: 11/14/2023HA1C 8.5 4.0-6.0 %LIPID PANEL Date: 11/14/2023HOLESTEROL 138 140-199 MG/DLTRIGLYCERIDES 178 0-150 MG/DLHDL CHOLESTEROL 66 40- MG/DLLDL CHOLESTEROL, CALCULATED 36 0-130 MG/DLMICROALBUMN RNDM W/CREAT RATIO Date: 11/14/2023MICROALBUMIN, URINE 32.0 0.0-16.6 MG/L Rodolfo Chapman MD [address] [facility], [facility] [address], [place], [address], [place] - [facility] [employer] [facility] 05/13/2024 15:40:33 5 text/html Patient Name: Italia Hooks Of Service: Saturday ( 11.11.2024 ): 1955 Age: 69 There has been approximately a 3 lb weight loss since 11/14/2023. This represents approximately a 1.4% change in weight. Weight change attributable to lifestyle changes. Vital Signs:Blood Pressure: Sitting Rt. Arm 160/84Pulse: Sitting 67 /min and RegularRespiratory Rate: 16Height 61.5 in or 1.6 mWeight 212 lb or 96.2 kgBMI 39.4Temperature: 97 F or 36.1 CDCCT HAIC: 8.2 Calculated MB mg%Pulse Oximetry: 96 % at rest on no oxygen Chief Complaint: Addressed in HPI Problems or conditions discussed in the HPI were the only ones reviewed during the encounter.Only social and family history addressed in the HPI were reviewed during this encounter. Attendant(s): NoneConstitutional and Systemic Symptoms:none Medication Reconciliation: from medication list. History of Present Illness #1. Atypical chest pain that is located substernally described as a squeezing pressure pain that may last for hours at a time which does radiate somewhat through to the back. EKG sinus mechanism within normal limits. Has a number of risk factors but may also represent GI pain possibly gallbladder or even reflux type symptomatology. Already on medication for reflux. Otherwise doing well. Will need further evaluation. Will obtain a ultrasound of the gallbladder for further evaluation set up with Cardiology for further evaluation: #2. Essential Hypertension: Stage: Stage I Interval Neurological Complaints no headaches. No shortness of breath, orthopnea or cardiovascular symptoms. No other symptoms related to end organ damage. Pressure has been under excellent control. Currently normal. No other end organ symptoms or findings. Therapy reviewed regarding management of hypertension and includes salt restriction and Lisinopril. #3. Type II Hypercholesterolaemia: Currently taking medication and tolerating well. No interval complaints of any muscle pain or arthralgia. No significant liver changes with medications. Last lipid panel: fair control. Therapy reviewed regarding treatment of cholesterol management and include diet and Atorvastatin Calcium. #4. Type II Diabetes: Has had no polyuria polyphagia or polydipsia. Has had several hypoglycemic like responses. No new history of any numbness, tingling, weakness or visual problems. No nausea, anorexia or other constitutional symptoms. There has been no foot problems or non healing lesions. The last HAIC was DCCT HAIC: 8.2 Calculated MB mg%. CGM: No. Average blood sugars 125-150 mg%. Checking sugars : infrequently. Medication Types Include: Metformin, SGLT2 inhibitors and Insulin Secondary complications include none. Macro-vascular complications include none. Therapy reviewed regarding diabetic management and include Jardiance, Melatonin, Metformin Hydrochloride and Tresiba Compliance: good Renal Protection: PAOLA inhibitors Lipid management: statins Urinary microalbumin: A1 . Ophthalmological: has seen eye doctor within the last year. Control: Inadequate control > 8 #5. Hx of esophageal reflux currently stable. Hx of Complications: none The severity, duration and intensity of symptoms have improved. Frequency: most meals Treatment consists medications taken on intermittent basis. Current therapy includes no medication. There has been no nausea, eructation, vomiting, hematemesis, dysphagia, velopharyngeal insufficiency and odynophagia. No change in he frequency or intensity of symptoms. Has had no melena. Has had no . Discussed use of H2 antagonists and the possibility of trying to reduce the frequency of the use of any PPI inhibitors and try H2 antagonists to see if symptoms can be controlled with lease intensive therapy since a number of complications are associated with chronic prolonged use of PPI inhibitors. #6. Hx of obesity. Currently Class 1 Obesity BMI 30-34.99. Has tried numerous dietary support and supplements with no benefit. Instructed on the health consequences of the obese status particularly cancer - diabetes and heart disease. Discussed other modalities of weight loss no . Potential candidate for bariatric surgery: Yes. Wishes to be evaluated by Dietary: No and was offered to be evaluated and instructed by electroencephalographic technician on weight loss diet. Active Medication ListLisinopril 20 MG (TABLET - ORAL) One DailyAspirin 81 MG DailyMelatonin 5 MG (CAPSULE - ORAL) One At BedtimeAtorvastatin Calcium 40 MG TABLET One DailyFish Oil Caps DilyMetformin Hydrochloride 500 MG (TABLET - ORAL) Two Twice A DayCyclobenzaprine 10 MG (TABLET - ORAL) One BidFenofibrate 160 MG (TABLET - ORAL) Once DailyVitamin D D3 50mcgVitamin C 500 MG Once DailyTresiba 450 UNITS/1.5 ML (300 UNITS/ ML) (SOLUTION - SUBCUTANEOUS) 35 Units Twice DailyHumalog Pen 26 Units Before MealsJardiance 25 MG TABLET, FILM COATED One Daily Adverse Drug Reactions ReviewedPenicillin Rash And Hives Vaccination and Immunization( ) 2021-01 COVID MODERNA(X) 2023-07 INFLUENZA(X) 2021-11 COVID BOOSTER MODERNA( ) 2024-05 PREVNAR 20 Surgical Lyntihm9976-98 Left XBG2618-86 Right URZ3527-69 Left JAP9769-78 Right CTS Preventative Testing( ) 07/01/2024 Optometry( ) 06/16/2024 Cologuard 06/16/2027( ) 05/15/2024 Albumin 4.5 G/DL H( ) 05/15/2024 DEXA Scan 05/15/2026( ) 05/15/2024 Micro Albumin 10.0 MG/L( ) 05/15/2024 HAIC 8.2 % H( ) 01/04/2023 Mammogram 01/04/2025( ) 08/14/2022 Ophthalmology( ) 02/03/2019 CT Thorax, Abdomen And Pelvis 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 Family HistoryMother 76 from complications of diabetes and hypertensionFather in his 30's from a drowning accidentHas two brothers and one sister all living and in good health Rodolfo Chapman MD [address] [facility], [facility] [address], [place], [address], [place] [employer] 11/11/2024 15:46:30 OBGyn Episode No OBEpisode recorded.
--- OUTSIDE RECORDS SUMMARY | 2024-11-19 06:55 | XMS_ITS | Data Portability ---
Author Organization [facility] Address [address] [place] [address] Assessment No assessment recorded. Plan of Treatment Reminders Order Date Submit Date Provider Last Modified By Organization Details Last Modified Time Details Appointments None recorded. Lab pap, IG + HPV, cervical 2015 016 [facility], [facility] [address], [place], [address], 6 04:30:43 urinalysis, dipstick 2015 016 In-Office Order, Internal Use Only DO Not Attach Compendium DO Not Attach Compendium, Do Not Delete/merge, [id number] 6 04:31:00 test, urine 2015 016 In-Office Order, Internal Use Only DO Not Attach Compendium DO Not Attach Compendium, Do Not Delete/merge, [id number] 6 04:31:04 RPR (rapid plasma reagin), serum 2015 016 [facility], [address], [place], [address], 6 04:31:14 hsv-2 (herpes simplex virus type 2) igg Ab, serum 2015 016 [facility], [address] [place], [place] [address], [address], [place], [address], 6 04:31:14 hepatitis panel (A+B+C), acute, serum 2015 016 [facility], [address], [place], [address], 6 04:31:14 hepatitis B surface Ab, qualitative , serum 2015 016 [facility], [address], [place], [address], 6 04:31:14 HIV 1+2 AB + HIV 1 p24 Ag, qualitative immunoassay , serum 2015 016 [facility], [address], [place], [address], 6 04:31:14 bacterial vaginosis + vaginitis panel, vaginal 2015 016 [facility], [address], [place], [address], 6 04:30:41 Referral counseling referral 2015 016 Not available 6 04:30:50 Procedures None recorded. Surgeries None recorded. Imaging None recorded. Medication Orders None recorded. Patient TargetsNo targets recorded. Patient Instructions Encounter Date Encounter Id Patient Instructions Last Modified By Organization Details Last Modified Time 08/09/2016 [id number] well visit, wome n 50 to 65: care instructions [id number] Not available 09/22/2016 04:31:19 body mass index: care instructions [id number] Not available 09/22/2016 04:31:08 Reason for Referral Counseling Referral for Posi tive screening for depression on PHQ-9 (Patient Health Questionnaire 9) Referring Physician: Nabila Bentley, COMPUTER SCIENCE PROFESSOR, Encounter Date: 08/09/2016 Results Created Date Observation Date Name Description Value Unit Range Abnormal Flag Note LastModifiedBy Organization Detail LastModifiedTime 08/09/20 16 08/09/2016 pregn marques test, urine HCG negati ve Not Available In-Office Order Internal Use Only DO Not Attach Compendium DO Not Attach Compendium, Do Not Delete/merge, [id number] 08/09/2016 12:46:38 08/09/20 16 08/09/2016 urina lysis , dipst ick Leukocytes Negati ve Not Available In-Office Order Internal Use Only DO Not Attach Compendium DO Not Attach Compendium, Do Not Delete/merge, [id number] 08/09/2016 12:44:27 08/09/20 16 08/09/2016 urina lysis , dipst ick Nitrite negati ve Not Available In-Office Order Internal Use Only DO Not Attach Compendium DO Not Attach Compendium, Do Not Delete/merge, [id number] 08/09/2016 12:44:27 08/09/20 16 08/09/2016 urina lysis , dipst ick Urobilinogen 1 Not Available In-Of fice Order Internal Use Only DO Not Attach Compendium DO Not Attach Compendium, Do Not Delete/merge, [id number] 08/09/2016 12:44:27 08/09/20 16 08/09/2016 urina lysis , dipst ick Protein Negati ve Not Available In-Office Order Internal Use Only DO Not Attach Compendium DO Not Attach Compendium, Do Not Delete/merge, [id number] 08/09/2016 12:44:27 08/09/20 16 08/09/2016 urina lysis , dipst ick pH 8.0 Not Available In-Office Order Internal Use Only DO Not Attach Compendium DO Not Attach Compendium, Do Not Delete/merge, 08/09/2016 12:44:27 08/09/20 16 08/09/2016 urina lysis , dipst ick Blood Non-He molyze d: Trace Not Available In-Office Order Internal Use Only DO Not Attach Compendium DO Not Attach Compendium, Do Not Delete/merge, [id number] 08/09/2016 12:44:27 08/09/20 16 08/09/2016 urina lysis , dipst ick Specific Bad Axe 1.020 Not Available In-Off ice Order Internal Use Only DO Not Attach Compendium DO Not Attach Compendium, Do Not Delete/merge, [id number] 08/09/2016 12:44:27 08/09/20 16 08/09/2016 urina lysis , dipst ick Ketone Negati ve Not Available In-Office Order Internal Use Only DO Not Attach Compendium DO Not Attach Compendium, Do Not Delete/merge, [id number] 08/09/2016 12:44:27 08/09/20 16 08/09/2016 urina lysis , dipst ick Bilirubin Negati ve Not Available In-Office Order Internal Use Only DO Not Attach Compendium DO Not Attach Compendium, Do Not Delete/merge, [id number] 08/09/2016 12:44:27 08/09/20 16 08/09/2016 urina lysis , dipst ick Glucose Negati ve Not Available In-Office Order Internal Use Only DO Not Attach Compendium DO Not Attach Compendium, Do Not Delete/merge, [id number] 08/09/2016 12:44:27 08/09/20 16 08/10/2016 hepat itis panel (A+B+ C), acute , serum hep A Ab, IgM NEGATI VE negati ve Not Available [facility] ([facility]) [address] [place], [address], 08/10/2016 08:27:05 08/09/20 16 08/10/2016 hepat itis panel (A+B+ C), acute , serum HBsAg screen NEGATI VE negati ve Not Available [facility] ([facility]) [address] [place] [address], [address], 08/10/2016 08:27:05 08/09/20 16 08/10/2016 hepat itis panel (A+B+ C), acute , serum hep B core Ab, IgM NEGATI VE negati ve Not Available [facility] ([facility]) [address] [place], [address], 08/10/2016 08:27:05 08/09/20 16 08/10/2016 hepat itis panel (A+B+ C), acute , serum hep C virus Ab <0.1 S/co_ ratio 0.0-0. 9 NEGAT NASIM: < 0.8 INDET ERMIN ATE: 0.8 - 0.9 POSIT NASIM: > 0.9 [facility][NOTE 3] RECOM MENDS THAT A POSIT NASIM HCV ANTIB BRANT RESUL T BE FOLLO WED UP WITH A HCV NUCLE IC ACID AMPLI FICAT ION TEST (5507 13). Not Available [facility] ([facility]) [address] [facility], [place], [address], 08/10/2016 08:27:05 08/09/20 16 08/10/2016 hepat itis B surfa ce Ab, quali tativ e, serum hep B surface Ab, qual NON REACTI VE NON REACT NASIM: INCON SISTE NT WITH IMMUN ITY, LESS THAN 10 MIU/M L REACT NASIM: CONSI STENT WITH IMMUN ITY, GREAT ER THAN 9.9 MIU/M L Not Available [facility] ([facility]) [address] [place], [address], 08/10/2016 08:27:05 08/09/20 16 08/10/2016 RPR (rapi d plasm a reagi n), serum RPR NON REACTI VE non reacti ve Not Available [facility] ([facility]) [address] [place], [address], 08/10/2016 08:27:06 08/09/20 16 08/10/2016 HIV 1+2 AB + HIV 1 p24 Ag, quali tativ e immun oassa y, serum HIV screen 4TH generation wrfx NON REACTI VE non reacti ve Not Available [facility] ([facility]) [address] [place], [address], 08/10/2016 08:27:07 08/09/20 16 08/10/2016 hsv-2 (herp es simpl ex virus type 2) igg Ab, serum hsv 2 IgG, type spec <0.91 index 0.00-0 .90 NEGAT NASIM <0.91 EQUIV OCAL 0.91 - 1.09 POSIT NASIM >1.09 NOTE: NEGAT NASIM INDIC ATES NO ANTIB ODIES DETEC ISAIAH TO HSV-2 . EQUIV OCAL MAY SUGGE ST EARLY INFEC TION. IF CLINI JUAN C APPRO PRIAT E, RETES T AT LATER DATE. POSIT NASIM INDIC ATES ANTIB ODIES DETEC ISAIAH TO HSV-2 . Not Available [facility] ([facility]) [address] [facility], [place], [address], 08/10/2016 08:27:07 Result Notes None recorded. Procedures Surgical History Date Name Laterality Status Provider Name and Address Organization Details Recorded Time 6 Date of Last Pap Smear completed Flor Nuno MA [facility] 08/09/2016 12:37:46 delivery completed Flor Nuno MA [facility] 08/09/2016 12:36:28 Imaging Results None recorded. Procedure Notes None recorded. Medical Equipment None Reported. Allergies Allergen ID Allergen Name Allergen Category Reaction Reaction Severity Criticality Documentation Date Start Date Code Code System Note Provider Name and Address Organization Details Recorded Time 88902 Product containin g penicilli n and antibioti c (product) medicatio n Not available Not available Not available 08/09/2016 95180 05 SNOMED Not Available Not Available Not Available Vitals Date Recorded Body height Body weight Body mass index (BMI) Systolic blood pressure Diastolic blood pressure Provider Name and Address Organization Details Last Updated DateTime 08/09/2016 154.94 cm 76402.03 g 33.8 kg/m2 118 mm[Hg] 70 mm[Hg] Flor Nuno MA [facility] 6 12:58:49 Social History Question Answer Notes LastModified by Organizat ion Details LastModified Time Tobacco Smoking Status Never Smoker REYNALDO Hernández [facility] 08/09/2016 12:31:15 Do You Have An Advance Directive? Yes Information not available 08/09/2016 What Is Your Level Of Alcohol Consumption? None Information not available 08/09/2016 What Is Your Level Of Caffeine Consumption? Moderate Information not available 08/09/2016 How Much Tobacco Do You Chew? None Information not available 08/09/2016 Are You Currently Employed? Yes Information not available 08/09/2016 What Type Of Diet Are You Following? DIABETIC Information not available 08/09/2016 Which Illicit Or Recreational Drugs Have You Used? None Information not available 08/09/2016 Education 2 Year College Information not available 08/09/2016 What Is Your Occupation? Disabled Information not available 08/09/2016 Live Alone Or With Others? With Others Information not available 08/09/2016 How Many Children Do You Have? 3 Information not available 08/09/2016 Performs Monthly Self-breast Exam? Yes Information no t available 08/09/2016 Do You Use Protection During Sex? No Information not available 08/09/2016 What Is Your Relationship Status? Information not available 08/09/2016 Seat Belts Used Routinely Yes Information not available 08/09/2016 Are You Sexually Active? No Information not available 08/09/2016 At What Age Did You Start Smoking Tobacco? 0 Information not available 08/09/2016 How Much Tobacco Do You Smoke? No Information not available 08/09/2016 Do You Use Sunscreen Routinely? No Information not available 08/09/2016 How Many Years Have You Smoked Tobacco? 0 Information not available 08/09/2016 Sex: Unknown Functional Status Question Answer Note LastModified by Organization D etails LastModified Time What is your exercise level? Moderate Information not available 08/09/2016 Mental Status None recorded. Family History Relationship Description Onset Age of this Age Resolved Age Notes LastModified by Organization Details LastModified Time Paternal Grandmother Diabetes mellitus [email or web address] Not available 2015 12:30:40 Father Hypertensive disorder [email or web address] Not available 2015 12:30:51 Mother Malignant tumor of breast [email or web address] Not available 2015 12:31:05 Medical History No medical history recorded. Gynecological History Statement/Question Response Abnormal Pap N On BCP's at Conception? N STIs/STDs N HPV Vaccine N Age at First Child 25 If Post Menopausal, Age at Menopause 44 Sexually Active? N Menses Monthly N Date of Last Pap Smear 08/09/2016 Sexual Problems? N LMP Obstetrics History GPAL:G 3 P 0 0 0 3 Type Value Multiple Births 0 Full Term 0 Induced 0 Spontaneous 0 Premature 0 Living 3 Ectopics 0 Total 3 Past Encounters Encounter ID Performer Location Encounter Start Date Encounter Closed Date Diagnosis/Indication Diagnosis SNOMED-CT Code Diagnosis ICD10 Code Diagnosis Note [id number] MD Corinne Alba (COMPUTER SCIENCE PROFESSOR) [facility] [place] [address] 08/09/2016 11:23:26 08/10/2016 10:04:04 Gynecologic examination 81374783 Z01.419 Positive s creening for depression on PHQ-9 (Patient Health Questionnaire 9) 4447672390 39358 Z13.89 Family his tory of breast cancer 221253279 Z80.3 Body mass index 30+ - obesity 652484935 Z68.39 SHE SAY HER PCP ORDERED ALL HER BLOOD WORK Health Concerns Section Related Observation LastModified by Organization Detai ls LastModified Time None Recorded Concern Status LastModified by Organization Details LastModified Time None Recorded Advance Directives Directive Y: Payers Encounter Date Sequence Insurance Name Policy Number Policy León Covered Member ID León Member ID Guarantor Name 08/09/2016 1 [facility] PRIOR TO 04/06/2021 (MEDICAID REPLACEMENT - HMO) [address] Tan [id number] Italia Tan Notes Date Note Type Note Provider Name and Address Organization Details Recorded Time 08/09/2016 text/html Annual GYNReport ed bypatient.History: no gynecologic complaints Menstrual cycle:menopause at age 44 Urinary symptoms:No hematuria; No incontinence Vulva:No genital lesion Vagina:Normal vaginal discharge Breast:No breast pain; No breast lump; No nipple discharge Current Contraception:Tuba l ligation Sexual complaints:No sexual complaints; No pain during intercourse; Normal libido Menopausal Symptoms:No menopausal symptoms; Normal vaginal lubrication Psychological symptoms:No depression; No anxiety; No PMDD Preventive measures:Encourage self breast examination; Encourage regular exercise; Encourage no tobacco use; Encourage regular mammograms starting age 40; Mammogram performed within the past year; also counseled about calcium intake and advised to start over the counter calcium treatment. She say she had mammogram 3 months ago and was normal Nabila Bentley MD Attn: Accounting,[address] [place], [address], [place] [facility] 08/14/2016 10:16:23 OBGyn Episode Ob Episode Information Episode Created Date Number of Fetuses Patient Bloodtype Patient rh Status Prepregnancy Weight lbs Domestic Partner Domestic Partner Phone Father Name Loadmaster Status 08/09/20 16 1 CLOSED Fetus Data First Name Last Name Admitted to NICU Weight (g) Sex Living Outcome Pediatric Complications Fetus ID Race Codes Race Delivery Type 4564.04 2704 M Full Term [id number] Alan Calculation Initial Alan Date Initial Exam Date Initial Exam Provider Initial Ultrasound Date Last Menstrual Period Date Ultra Sound Weeks Gestation 0 Eighteen To Twenty Week Alan Update Ultra Sound Date Fundal Height At Umbil Quickening Date Ultra Sound Latest Weeks Gestation Final Alan Confirmed By Final Alan Confirmed Date Final Alan Date Ultra Sound Latest Days Gestation 0 0 Menstrual History Last Menstrual Date Menses Monthly On Bcp Conception Prior Menses Frequency Hcg Plus Date Menarche Onset Age Delivery Information Delivery Date Delivery Type Labor Anesthesia Weeks Gestation Incision Type Labor Labor Length Hrs Delivered By Post Complications Tubal Sterilization Discharge Date Comments 1 Regional-Sp inal 40 false Discharge Information Feeding Method Contraceptive Method Maternal HG B and HCT Levels Ob Episode Information Episode Created Date Number of Fetuses Patient Bloodtype Patient rh Status Prepregnancy Weight lbs Domestic Partner Domestic Partner Phone Father Name Loadmaster Status 08/09/20 16 1 CLOSED Fetus Data First Name Last Name Admitted to NICU Weight (g) Sex Living Outcome Pediatric Complications Fetus ID Race Codes Race Delivery Type 3203.26 6704 F Full Term [id number] Vaginal Alan Calculation Initial Alan Date Initial Exam Date Initial Exam Provider Initial Ultrasound Date Last Menstrual Period Date Ultra Sound Weeks Gestation 0 Eighteen To Twenty Week Alan Update Ultra Sound Date Fundal Height At Umbil Quickening Date Ultra Sound Latest Weeks Gestation Final Laan Confirmed By Final Alan Confirmed Date Final Alan Date Ultra Sound Latest Days Gestation 0 0 Menstrual History Last Menstrual Date Menses Monthly On Bcp Conception Prior Menses Frequency Hcg Plus Date Menarche Onset Age Delivery Information Delivery Date Delivery Type Labor Anesthesia Weeks Gestation Incision Type Labor Labor Length Hrs Delivered By Post Complications Tubal Sterilization Discharge Date Comments 0 Regional-Ep idural 40 false 12 Discharge Information Feeding Method Contraceptive Method Maternal HG B and HCT Levels Ob Episode Information Episode Created Date Number of Fetuses Patient Bloodtype Patient rh Status Prepregnancy Weight lbs Domestic Partner Domestic Partner Phone Father Name Loadmaster Status 08/09/20 16 1 CLOSED Fetus Data First Name Last Name Admitted to NICU Weight (g) Sex Living Outcome Pediatric Complications Fetus ID Race Codes Race Delivery Type 4309.12 4 M Full Term [id number] Only Alan Calculation Initial Alan Date Initial Exam Date Initial Exam Provider Initial Ultrasound Date Last Menstrual Period Date Ultra Sound Weeks Gestation 0 Eighteen To Twenty Week Alan Update Ultra Sound Date Fundal Height At Umbil Quickening Date Ultra Sound Latest Weeks Gestation Final Alan Confirmed By Final Alan Confirmed Date Final Alan Date Ultra Sound Latest Days Gestation 0 0 Menstrual History Last Menstrual Date Menses Monthly On Bcp Conception Prior Menses Frequency Hcg Plus Date Menarche Onset Age Delivery Information Delivery Date Delivery Type Labor Anesthesia Weeks Gestation Incision Type Labor Labor Length Hrs Delivered By Post Complications Tubal Sterilization Discharge Date Comments 1 Regional-Sp inal 40 false Discharge Information Feeding Method Contraceptive Method Maternal HG B and HCT Levels
--- OUTSIDE RECORDS SUMMARY | 2024-11-19 06:55 | XMS_ITS | Continuity of Care Document ---
Author Organization [facility] Address [address] [place] [address] [address] [place] [address] Phone Care Team Providers Care Flow Match Sofa Cutter Name Role Phone Clifford Aguilar Unavailable Unavailable Advance Directives Directive Yes / No Effective Date File Name No Information Encounters Encounter Description Practice Location Reason(s) For Visit Diagnoses Date Provider Providers Copied on Encounter [facility], [address] [place] [address] [address], [place], [place], [id number], [place] tel:[phone] SEC [facility] No Information Dec-1 3-200 4 Doisy Edward. [address] , [address], [place], [address], [place]. tel:[phone] Family History Family Member Type Diagnosis Age [...]
[2024-11-19 07:42] LABS: Basophils Absolute Auto 0.1 K/mm3 (0.0-0.1); Basophils Percent Auto 0.8 % (0.2-1.2); Eosinophils Absolute Auto 0.4 K/mm3 (0-0.3); Eosinophils Percent Auto 4.2 % (0-4.4); Hematocrit 40.4 % (37.0-47.0); Hemoglobin 13.5 g/dL (12.0-15.0); Immature Granulocyte Absolute 0.04 K/mm3 (0.00-0.031); Immature Granulocyte Percent A 0.4 % (0-0.5); Lymphocytes Absolute Auto 4.16 K/mm3 (0.9-3.2); Lymphocytes Percent Auto 42.4 % (18.3-44.2); Mean Corpuscular HGB Conc 33.4 g/dl (32-36); Mean Corpuscular Hemoglobin 28.9 pg (26-34); Mean Corpuscular Volume 86.5 fl (80-100); Mean Platelet Volume 10.2 fl (7.4-10.4); Monocytes Absolute Auto 0.5 K/mm3 (0.1-0.6); Neutrophils Absolute Auto 4.6 K/mm3 (1.3-6.7); Neutrophils Percent Auto 47.2 % (45.5-73.1); Platelet Count Result 344 k/mm3 (150-375); Red Blood Count 4.67 M/mm3 (4.2-5.4); Red Cell Distribution Width 12.7 % (11.5-14.5); White Blood Count 9.8 K/mm3 (4.5-10.0)
[2024-11-19 08:01] LABS: Alanine Aminotransferase 33 U/L (6-35); Albumin Level 4.3 g/dL (3.5-5.1); Alkaline Phosphatase 85 U/L (38-126); Anion Gap 8 mmol/L (4-12); Aspartate Amino Transferase 28 U/L (14-36); Bilirubin,Total 0.6 mg/dL (0.2-1.3); Blood Urea Nitrogen 17 mg/dL (7-17); Calcium 10.1 mg/dL (8.4-10.2); Carbon Dioxide 29 mmol/L (22-30); Chloride 103 mmol/L (98-107); Cholesterol 142 mg/dL (0-200); Estimated Glomerular Filt Rate 59; Glucose 88 mg/dL (65-110); HDL Direct 68 mg/dL; Magnesium 1.9 mg/dL (1.6-2.3); Potassium 3.9 mmol/L (3.4-5.0); Sodium 140 mmol/L (137-145); Triglycerides 117 mg/dL (<150)
[2024-11-19 08:04] LABS: Hemoglobin A1C 7.2 % (<5.7)
[2024-11-19 08:16] LABS: LDL Cholesterol Direct 54 mg/dL
[2024-11-19 09:04] LABS: Creatinine Urine 57.5 mg/dL
[2024-11-19 09:08] LABS: MALB Creatinine Ratio 11.8 mg/g (0-30); Microalbumin Urine Random 6.8 mg/L (0-16.7)
== END 2024-11-19 06:48 | disposition home or self-care (01) ==
PROVIDERS: PCP Internal Medicine; Visit Provider Internal Medicine
DX: K76.0 Fatty (change of) liver, not elsewhere classified (principal); R07.89 Other chest pain; I10 Essential (primary) hypertension; E78.00 Pure hypercholesterolemia, unspecified; E11.9 Type 2 diabetes mellitus without complications; K21.9 Gastro-esophageal reflux disease without esophagitis
CPT/HCPCS: 36415; 76705; 80053; 80061; 82043; 82607; 83036; 83735; 84443; 85025

== ENCOUNTER 2025-06-22 09:29 | Outpatient (CLI) | payer MEDICARE, SELFPAY ==
--- OUTSIDE RECORDS SUMMARY | 2004-09-18 03:45 | XMS_ITS | Continuity of Care Document ---
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 [address] [facility] [address] , [address], [place], [address], [place]. tel:[phone] Family History Family Member Type Diagnosis Age At Onset No Information Payers Payer name Insurance type Covered republican ID Authoriza tion(s) No Information Social History Type Description Quantity Date Captured Comments Sex Female Smoking Status No Information Chief Complaint And Reason For Visit No Information Reason For Referral Reason For Referral No Information History Of Present Illness Encounter Date Complaint History Of Prese nt Illness No Information Functional Status Date Functional Assessmen t No Information Instructions Date Instruction Additional Infor mation No Information Assessments Type Assessment Date No Information Patient Care Teams Name Effective Dates (start - stop) Status Members No Information
--- NOTE | ~2025-06-22 | US_ITS ---
EXAMINATION: US venous doppler [facility] DATE: 06/22/2025 10:24 INDICATION: Lower limb localized edema. TECHNIQUE: Grayscale ultrasound images without and with compression and Doppler ultrasound images of the bilateral lower extremity veins were obtained. COMPARISON: None. FINDINGS: The visualized portions of right common femoral vein, profunda (deep) femoral vein, femoral vein, popliteal vein, peroneal veins, posterior tibial veins, and greater saphenous vein outflow are patent. The visualized portions of left common femoral vein, profunda femoral vein, femoral vein, popliteal vein, peroneal veins, posterior tibial veins, and greater saphenous vein outflow are patent. IMPRESSION: 1. No deep venous thrombosis. Reviewed, dictated and finalized at location E.
--- OUTSIDE RECORDS SUMMARY | 2025-06-22 10:51 | XMS_ITS | Patient Health Record ---
Author Organization [facility], Address [address] [place] [address] Care Team Providers Care Food Vendor Name Role Phone Emerson Marques Unavailable [phone] ALLERGIES Allergen (clinical drug ingredient) Drug/Non Drug Allergy documented on EMR Reaction Allergy Type Onset Date Status Penicillin (Allergy only) Unknown Drug Allergy Active REASON FOR REFERRAL No Information MEDICATIONS Medication SIG (Take, Route, Frequency, Duration) Notes Start Date End Date Status Glimepiride Active HYDROcodone-Acetaminophen Active Cyclobenzaprine HCl Active Atorvastatin Calcium Active metFORMIN HCl Active Citalopram Hydrobromide Active LORazepam Active Baby Aspirin Active PLAN OF TREATMENT No Information Insurance Providers Payer Name Payer Address Payer Phone Subscriber Number Group Number Insured Name Patient Relationship to Insured Coverage Start Date Coverage End Date [employer] [address] [address] [place] [phone] [id number] DOI 03-08-15 Fernanda Dunn MEDICAL (GENERAL) HISTORY Medical History History ICD Code depression diabetes mellitus Surgical History Surgery Date(Month/Year) Right knee replacement Left and Right CTR elbow surgery, tendon repair section x 2 left hand cyst removal
[2025-06-22 11:10] LABS: Hematocrit 40.4 % (37.0-47.0); Hemoglobin 13.5 g/dL (12.0-15.0); Immature Granulocyte Percent A 0.3 % (0-0.5); Lymphocytes Absolute Auto 3.38 K/mm3 (0.9-3.2); Mean Corpuscular HGB Conc 33.4 g/dl (32-36); Mean Corpuscular Hemoglobin 29.2 pg (26-34); Mean Corpuscular Volume 87.3 fl (80-100); Nucleated Red Blood Cells Absolute Auto 0.000 K/mm3 (0.0-0.012); Nucleated Red Blood Cells Perc 0.0 % (0.0-0.2); Platelet Count Result 338 k/mm3 (150-375); Red Blood Count 4.63 M/mm3 (4.2-5.4); White Blood Count 7.8 K/mm3 (4.5-10.0)
[2025-06-22 11:30] LABS: Hemoglobin A1C 8.7 % (<5.7)
[2025-06-22 11:44] LABS: Alanine Aminotransferase 22 U/L (6-35); Albumin Level 4.3 g/dL (3.5-5.1); Alkaline Phosphatase 74 U/L (38-126); Anion Gap 7 mmol/L (4-12); Aspartate Amino Transferase 24 U/L (14-36); Bilirubin,Total 0.6 mg/dL (0.2-1.3); Blood Urea Nitrogen 23 mg/dL (7-17); Calcium 9.9 mg/dL (8.4-10.2); Carbon Dioxide 28 mmol/L (22-30); Chloride 102 mmol/L (98-107); Cholesterol 136 mg/dL (0-200); Estimated Glomerular Filt Rate 55; Glucose 228 mg/dL (65-110); HDL Direct 55 mg/dL; Potassium 4.3 mmol/L (3.4-5.0); Sodium 137 mmol/L (137-145); Total Protein 7.8 g/dL (6.3-8.2); Triglycerides 134 mg/dL (<150)
[2025-06-22 11:49] LABS: Free T4 Free Thyroxine 1.10 ng/dL (0.78-2.19)
[2025-06-22 12:19] LABS: Thyroid Stimulating Hormone 1.780 uIU/mL (0.465-4.680)
== END 2025-06-22 09:30 | disposition home or self-care (01) ==
PROVIDERS: PCP Internal Medicine; Visit Provider Internal Medicine
DX: R07.9 Chest pain, unspecified (principal); E78.00 Pure hypercholesterolemia, unspecified; E11.9 Type 2 diabetes mellitus without complications
CPT/HCPCS: 36415; 80053; 80061; 83036; 84439; 84443; 85025; 85380; 93970